=== PATIENT | male | born 1950 | race Caucasian/White ===

== ENCOUNTER 2021-09-25 18:32 | Inpatient (IN) | payer MEDICARE, SELFPAY ==
[2021-09-25] VITALS (8 sets, daily range): BP systolic 153–194; BP diastolic 75–86; PULSE 84–107; RESP 20–28; TEMP 37.3; O2SAT 91–100; BMI 24.1
--- NOTE | 2021-09-25 18:46 | DI.RAD.S_ITS ---
PROCEDURE: XR CHEST 1V INDICATIONS: Possible stroke TECHNIQUE: One view of the chest was acquired. COMPARISON: None. FINDINGS: Surgical changes and devices: Sternotomy wires and evidence of valve prosthesis. Lungs and pleura: No consolidation, pleural effusions or pneumothorax. Mediastinum: The cardiac silhouette is mildly enlarged. Calcified atheromatous change of the aorta. Bones and chest wall: No suspicious bony lesions. Overlying soft tissues appear unremarkable. IMPRESSION: No acute cardiopulmonary abnormality. Dictated by: Mack Gresham M.D. on 09/25/2021 at 19:57 Approved by: Mack Gresham M.D. on 09/25/2021 at 19:58
--- NOTE | 2021-09-25 18:46 | DI.CT.S_ITS ---
PROCEDURE: CT STROKE INDICATIONS: Positive BE-FAST, Stroke symptoms TECHNIQUE: Noncontrast 4.5 mm thick angled axial sections acquired from the foramen magnum to the vertex, with coronal reformats. For radiation dose reduction, the following was used: automated exposure control, adjustment of mA and/or kV according to patient size. COMPARISON: None. FINDINGS: Image quality: Excellent. CSF spaces: Basal cisterns are patent. No extra-axial fluid collections. The ventricles are symmetric in size and shape. Brain: No intracranial bleeds or masses. Bifrontal parietal encephalomalacia/gliosis as well as remote right cerebellar infarct. There is cerebral volume loss for age, with resultant ventricular and sulcal prominence. There are periventricular and deep white matter chronic small vessel ischemic changes. There is intracranial internal carotid artery atherosclerosis. Skull and face: Calvarium and visualized facial bones appear intact, without suspicious lesions. Sinuses: Visualized sinuses and mastoids are clear. IMPRESSION: No acute intracranial hemorrhage. This study fulfills neurological imaging criteria for inclusion or exclusion of acute stroke therapies based on available published neurological guidelines. Dictated by: Mack Gresham M.D. on 09/25/2021 at 19:26 Approved by: Mack Gresham M.D. on 09/25/2021 at 19:28
--- NOTE | 2021-09-25 18:46 | DI.CT.S_ITS ---
PROCEDURE: CT ANGIO HEAD AND NECK INDICATIONS: Possible stroke TECHNIQUE: After the administration of intravenous contrast, 1 mm thick sections acquired from the aortic arch through the [place] of [place]. Post-contrast 4.5 mm thick sections then re-acquired from the foramen magnum to the vertex. 3-dimensional goitryh-mopsmidbk-ryqlnapjep (MIP) and/or volume rendering reformats were acquired of the central intracranial vasculature and neck separately. For radiation dose reduction, the following was used: automated exposure control, adjustment of mA and/or kV according to patient size. COMPARISON: None. FINDINGS: Image quality: Excellent. BRAIN: CSF spaces: Ventricles are normal in size and shape. Basal cisterns are patent. No extra-axial fluid collections. Brain: No midline shift. No intracranial bleeds or masses. Bifrontal parietal hypoattenuation, compatible with gliosis. Remote infarct in the right cerebellum. Skull and face: Calvarium and facial bones appear intact, without suspicious lesions. Orbits appear normal. Sinuses: Sinuses and mastoids are clear. HEAD CT ANGIOGRAPHY: Anterior circulation: Intracranial internal carotid arteries are normal in size and flow. The flow within the paired anterior cerebral arteries is normal and symmetric. The flow within the middle cerebral arteries is normal and symmetric. The anterior communicating artery is seen. No aneurysms are seen. Posterior circulation: Visualized portions of the vertebral arteries demonstrate normal caliber, and join to form a normal appearing basilar artery. The right vertebral artery is dominant. Flow within the posterior cerebral arteries is normal and symmetric. No aneurysms are seen. NECK CT ANGIOGRAPHY: Carotid system: The great vessels demonstrate a conventional anatomy as they arise from the aortic arch. The origins of the common carotid arteries appear patent. The common carotid arteries demonstrate normal caliber and courses. The right bifurcation is widely patent. 55 percent stenosis of the left internal carotid artery, secondary to calcified atheromatous change. Posterior circulation: The origins of the vertebral arteries both appear widely patent. 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 The right vertebral artery is dominant. They join to form a normal appearing basilar artery. Soft tissues: Visualized neck soft tissues demonstrate no suspicious abnormalities. Bones: No suspicious bony lesions. Multifocal degenerative change. Visualized cervical spine appears normally aligned. IMPRESSION: 1. Approximately 55 percent stenosis by NASCET criteria of the left internal carotid artery secondary to calcified atheromatous change. 2. 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 Findings were discussed with the ordering provider at the time of dictation. Any quantitative measurements of stenosis were performed using NASCET criteria. Dictated by: Mcak Gresham M.D. on 09/25/2021 at 19:28 Approved by: Mack Gresham M.D. on 09/25/2021 at 19:39
--- NOTE | 2021-09-25 18:52 | PC.NURSE ---
Pt arrives ambulatory to ER with his . Pt states, first, that pt is very stubborn and I had to beg him to come in finally today-pt informs staff that 4 days ago, pt had sudden onset BUE numbness and loss of ability to speak and swallow or stick out his tongue. Pt has been able to communicate with her by writing and motioning/gesturing. Pt had episode in the car on the way to ER today of trouble breathing due to lack of ability to spit out saliva or swallow. Pt in no acute distress currently. Pt takes no medications, has no allergies. Pt states something similar happened to this 2 years ago and the pt never went to the doctor between today and then. Pt had speech symptoms back then and it gradually got better. Pt writes orientation answers to orientation questions and nods/shakes head appropriately to questions. Pt hypertensive, but otherwise VSS. Pt AxOx4. Pt has Hx of a metal heart valve and only takes ASA for this, per report.
[2021-09-25 19:11] LABS: Add Manual Diff / Slide Review NO; Basophils Absolute Auto 100 /uL (0-100); Basophils Percent Auto 0.8 % (0-2); Eosinophils Absolute Auto 300 /uL (0-450); Eosinophils Percent Auto 2.6 % (2-4); Hematocrit 45.5 % (41-53); Hemoglobin 14.9 g/dL (13.5-17.5); Lymphocytes Absolute Auto 1900 /uL (1100-4500); Mean Corpuscular HGB Conc 32.7 % (30-36); Mean Corpuscular Hemoglobin 30.6 PG (26-34); Mean Corpuscular Volume 93.5 fL (80-100); Monocytes Absolute Auto 1000 /uL (0-900); Neutrophils Absolute Auto 6400 /uL (1500-7000); Neutrophils Percent Auto 66.6 % (50-75); Platelet Count 234 X10^3/uL (150-400); Red Blood Cell Count 4.87 X10^6/uL (4.5-5.9); Red Cell Distribution Width 15.2 % (11.6-14.8); White Blood Cell Count 9.7 X10^3/uL (4.5-11.0)
--- NOTE | 2021-09-25 19:21 | ED.NEUROSD ---
HPI - Neuro Symptoms/Deficit General Chief Complaint: Neuro Symptoms/Deficit Stated Complaint: LEFT ARM NUMBNESS LOST ABILITY TO SPEAK Time Seen by Provider: 09/25/21 19:20 Source: family Mode of arrival: Ambulatory Limitations: no limitations History of Present Illness HPI Narrative: This is a 71-year-old male with a reported mechanical valve placed in 2010. Patient is unable to speak but can write and has a friend at bedside that he was texting for the past 3 days. Patient has been unable to speak, he has been unable to swallow his own secretions, patient indicated that he had some left arm weakness and numbness and difficulty with use of his arm but that has improved. He continues to be unable to speak or swallow well. He has been sucking on ice cubes to maintain hydration. He denies headache, he denies any difficulty with gait. He denies any chest pain or shortness of breath. Denies any nausea or vomiting. Denies any new GI or urinary symptoms. He indicates he takes an aspirin 81 mg daily as his only medication. He denies other surgeries besides his valve replacement. Patient vapes juice but not anything with nicotine. No alcohol or illicit. He lives on [facility]. On Anticoagulants: Yes (aspirin) Related Data Home Medications Medication Instructions Recorded Confirmed aspirin 81 mg chewable tablet 81 mg PO DAILY 09/25/21 09/25/21 Allergies Allergy/AdvReac Type Severity Reaction Status Date / Time No Known Drug Allergies Allergy Verified 09/25/21 20:03 Review of Systems Review of Systems ROS Unobtainable: All systems reviewed & are unremarkable except as noted in HPI and below Hematologic/Lymphatic On Anticoagulants: Yes (aspirin) Patient History Social History household members: none Smoking Status: Never smoker Smoking Status: Never smoker alcohol intake frequency: 0-2 drinks per day Substance Use Type: does not use Exam Narrative Exam Narrative: GEN: well nourished, well appearing male, alert and oriented, patient appears to be in mild distress. Patient communicates by writing. HEENT: Atraumatic, pupils are equal round reactive to light, extraocular movements are intact, nares are clear, no obvious droop, patient indicates that he is unable to stick his tongue out of his mouth, he has some mild difficulty with secretions but is able to handle the majority he had can grunt but cannot articulate in any way. HEART: Regular rate and rhythm without murmur, clicks, rubs. LUNGS:Lungs clear to auscultation, no wheezes, rales, crackles, chest moves symmetrically ABD:bowel sounds normal, soft, non-tender, no guarding, rebound, rigidity, no masses noted, no hepatosplenomegaly :No CVA tenderness MSCL: Non-tender, no muscle atrophy, muscles strength 5/5 upper and lower extremities, full range of motion, normal gait NEURO:CN 2-12 intact, sensation normal, reflexes 2/4 upper and lower extremities. finger nose finger test normal, heel rodriguez test normal SKIN: No rash, erythema or other skin changes. Initial Vital Signs Initial Vital Signs: Vital Signs Pulse Rate 92 H 09/25/21 18:46 Respiratory Rate 20 09/25/21 18:46 Blood Pressure 194/86 H 09/25/21 18:46 Pulse Oximetry 96 09/25/21 18:46 Scores NIH Stroke Scale Level of Conciousness: Alert, keenly responsive Ask month/age: Answers both questions correctly. Open/close eyes, close hand: Performs both tasks correctly Best gaze horizontal: Normal Visual saucedo: No visual loss Facial palsy: Partial paralysis, total or near total paralysis of lower face Left arm drift: No drift for full 10 sec Right arm drift: No drift for full 10 sec Left leg drift: No drift for full 5 sec Right leg drift: No drift for full 5 sec Limb ataxia: Absent Sensory on face/arms/legs: Normal, no sensory loss Best language: Mute, global aphasia Dysarthria: Severe, unintelligible Extinction or inattention: No abnormality Total NIH Stroke scale score: 7 Course Orders Ordered: ED Orders 09/26/21 04:50 Urine Drug Screen, Rapid Stat Acetaminophen (Acetaminophen 325 Mg Tablet) 650 mg PO Q6HR PRN PRN Reason: pain, fever Aspirin (Aspirin 300 Mg Supp) 300 mg MT DAILY [facility] Atorvastatin Calcium (Atorvastatin 20 Mg Tablet) 80 mg PO BEDTIME BRUCE Last Admin: 09/25/21 21:57 Dose: Not Given Documented by: DAVID Enoxaparin Sodium (Enoxaparin 40 Mg/0.4 Ml Syringe) 40 mg SUBCUT DAILY [facility] Sodium Chloride (Normal Saline 0.9%) 1,000 mls @ 150 mls/hr IV CONT BRUCE Last Admin: 09/26/21 04:52 Dose: 150 mls/hr Documented by: Infusion: 09/26/21 02:37 Dose: 150 mls/hr Documented by: Admin: 09/25/21 19:56 Dose: 150 mls/hr Documented by: [email or web address] Naloxone HCl (Naloxone 0.4 Mg/Ml Vial) 0.2 mg IV Q2MIN PRN PRN Reason: Opiate Reversal Nystatin (Nystatin Powder 15gm) 1 applic TOP BID PRN PRN Reason: Rash Last Admin: 09/26/21 04:51 Dose: 1 applic Documented by: DAVID Ondansetron HCl (Ondansetron 4 Mg/2 Ml Inj) 4 mg IV Q8HR PRN PRN Reason: Nausea And Vomiting Discontinued Medications Aspirin (Aspirin 81 Mg Chew Tab) 324 mg PO NOW ONE Stop: 09/25/21 19:45 Last Admin: 09/25/21 20:03 Dose: Not Given Documented by: [email or web address] Aspirin (Aspirin 300 Mg Supp) 300 mg MT NOW ONE Stop: 09/25/21 20:06 Last Admin: 09/25/21 20:12 Dose: 300 mg Documented by: [email or web address] Consultations Consultation #1: Dr. Virgen, hospitalist accepts for admission. Reviewed patient's findings including angiography, given aspirin 300 mg per rectum as patient unable to chew aspirin. Time: 19:57 Vital Signs Vital signs: Vital Signs - 8 hr 09/25/21 18:46 Pulse Rate 92 H Respiratory Rate 20 Blood Pressure 194/86 H Pulse Oximetry 96 MDM - Neuro Symptoms/Deficit Lab Data Result diagrams: 09/26/21 04:15 09/26/21 04:15 Labs: Lab Results 09/25/21 09/25/21 09/25/21 Range/Units 17:00 17:00 17:00 WBC 9.7 (4.5-11.0) X10^3/uL RBC 4.87 (4.5-5.9) X10^6/uL Hgb 14.9 (13.5-17.5) g/dL Hct 45.5 (41-53) % MCV 93.5 (80-100) fL MCH 30.6 (26-34) PG MCHC 32.7 (30-36) % RDW 15.2 H (11.6-14.8) % Plt Count 234 (150-400) X10^3/uL Neut % (Auto) 66.6 (50-75) % Lymph % (Auto) 20.0 L (25-40) % [place] % (Auto) 10.0 (3-14) % Eos % (Auto) 2.6 (2-4) % Baso % (Auto) 0.8 (0-2) % Neut # (Auto) 6400 (9783-2628) /uL Lymph # (Auto) 1900 (7576-5701) /uL [place] # (Auto) 1000 H (0-900) /uL Eos # (Auto) 300 (0-450) /uL Baso # (Auto) 100 (0-100) /uL PT 12.6 (10.1-12.7) SECONDS INR 1.1 (0.9-1.3) APTT 31 (26.4-36.2) SECONDS Sodium 141 (137-145) mmol/L Potassium 4.2 (3.4-5.1) mmol/L Chloride 105 (98-107) mmol/L Carbon Dioxide 27 (22-32) mmol/L BUN 21 H (9-20) mg/dL Creatinine 1.00 (0.66-1.25) mg/dL Estimated GFR > 60 (>60) mL/min BUN/Creatinine Ratio 21.0 (6-22) Glucose 99 (80-110) mg/dL Calcium 9.4 (8.4-10.2) mg/dL Magnesium 2.1 (1.6-2.3) mg/dL Total Bilirubin 1.1 (0.2-1.3) mg/dL AST 48 (17-59) IU/L ALT 38 (<50) IU/L Alkaline Phosphatase 76 (38-126) U/L Total Creatine Kinase 613 H (55-170) U/L CK-MB (CK-2) 6.16 H (<2.37) ng/mL CK-MB (CK-2) Rel Index 1.0 L (1.5-5.0) % Troponin I 0.012 (0.01-0.034) ng/mL Total Protein 8.9 H (6.3-8.2) g/dL Albumin 5.1 H (3.5-5.0) g/dL Globulin 3.8 (1.7-4.1) g/dL Albumin/Globulin Ratio 1.3 (1.0-2.8) SARS-CoV-2 (PCR) (Negative) 09/25/21 Range/Units 19:45 WBC (4.5-11.0) X10^3/uL RBC (4.5-5.9) X10^6/uL Hgb (13.5-17.5) g/dL Hct (41-53) % MCV (80-100) fL MCH (26-34) PG MCHC (30-36) % RDW (11.6-14.8) % Plt Count (150-400) X10^3/uL Neut % (Auto) (50-75) % Lymph % (Auto) (25-40) % [place] % (Auto) (3-14) % Eos % (Auto) (2-4) % Baso % (Auto) (0-2) % Neut # (Auto) (1134-4947) /uL Lymph # (Auto) (7735-3737) /uL [place] # (Auto) (0-900) /uL Eos # (Auto) (0-450) /uL Baso # (Auto) (0-100) /uL PT (10.1-12.7) SECONDS INR (0.9-1.3) APTT (26.4-36.2) SECONDS Sodium (137-145) mmol/L Potassium (3.4-5.1) mmol/L Chloride (98-107) mmol/L Carbon Dioxide (22-32) mmol/L BUN (9-20) mg/dL Creatinine (0.66-1.25) mg/dL Estimated GFR (>60) mL/min BUN/Creatinine Ratio (6-22) Glucose (80-110) mg/dL Calcium (8.4-10.2) mg/dL Magnesium (1.6-2.3) mg/dL Total Bilirubin (0.2-1.3) mg/dL AST (17-59) IU/L ALT (<50) IU/L Alkaline Phosphatase (38-126) U/L Total Creatine Kinase (55-170) U/L CK-MB (CK-2) (<2.37) ng/mL CK-MB (CK-2) Rel Index (1.5-5.0) % Troponin I (0.01-0.034) ng/mL Total Protein (6.3-8.2) g/dL Albumin (3.5-5.0) g/dL Globulin (1.7-4.1) g/dL Albumin/Globulin Ratio (1.0-2.8) SARS-CoV-2 (PCR) Negative (Negative) Imaging Data CT scan - head: Radiologist's Impression: Gabriele Rogers??71??M??1950 ? Allergy/Adv: Not Recorded Close Head/Neck CTA 09/25/[address] (Signed) Harish Greshamddie - 09/25/21 Launch[facility] [address] CT Scan Report Signed Patient: Gabriele Rogers MR#: [id number] : 1950 Acct:[id number] Age/Sex: 71 / M Date of Service: 09/25/21 Loc: ED Accession Number: [id number] ?? Procedure: CT Stroke Ordering Provider: Ammy Sen D.O. PROCEDURE:? CT STROKE ? INDICATIONS:? Positive BE-FAST, Stroke symptoms ? TECHNIQUE:? Noncontrast 4.5 mm thick angled axial sections acquired from the foramen magnum to the vertex, with coronal reformats.? For radiation dose reduction, the following was used:? automated exposure control, adjustment of mA and/or kV according to patient size.? ? COMPARISON:? None. ? FINDINGS:? Image quality:? Excellent.? ? CSF spaces:? Basal cisterns are patent.? No extra-axial fluid collections.? The ventricles are symmetric in size and shape.? ? Brain:? No intracranial bleeds or masses.? Bifrontal parietal encephalomalacia/gliosis as well as remote right cerebellar infarct.? There is cerebral volume loss for age, with resultant ventricular and sulcal prominence.? There are periventricular and deep white matter chronic small vessel ischemic changes.? There is intracranial internal carotid artery atherosclerosis.? ? Skull and face:? Calvarium and visualized facial bones appear intact, without suspicious lesions.? ? Sinuses:? Visualized sinuses and mastoids are clear.? ? IMPRESSION:? No acute intracranial hemorrhage. ? This study fulfills neurological imaging criteria for inclusion or exclusion of acute stroke therapies based on available published neurological guidelines.? ? ? Dictated by: Mack Gresham M.D. on 09/25/2021 at 19:26 ? ? Approved by: Mack Gresham M.D. on 09/25/2021 at 19:28?? CTA - brain/neck: Radiologist's Impression: [address] [address] [address] Scan Report Signed Patient: Gabriele Rogers MR#: [id number] : 1950 Acct:[id number] Age/Sex: 71 / M Date of Service: 09/25/21 Loc: ED Accession Number: [id number] ?? Procedure: CT angio head and neck Ordering Provider: Ammy Sen D.O. PROCEDURE:? CT ANGIO HEAD AND NECK ? INDICATIONS:? Possible stroke ? TECHNIQUE:? ?After the administration of intravenous contrast, 1 mm thick sections acquired from the aortic arch through the [place] of [place].? Post-contrast 4.5 mm thick sections then re-acquired from the foramen magnum to the vertex.? 3-dimensional pqpsgea-dkwmzwlkh-lrllbremaf (MIP) and/or volume rendering reformats were acquired of the central intracranial vasculature and neck separately. For radiation dose reduction, the following was used:? automated exposure control, adjustment of mA and/or kV according to patient size.? ? COMPARISON:? None. ? FINDINGS:? Image quality:? Excellent.? ? BRAIN:? CSF spaces:? Ventricles are normal in size and shape.? Basal cisterns are patent.? No extra-axial fluid collections.? ? Brain:? No midline shift.? No intracranial bleeds or masses.? Bifrontal parietal hypoattenuation, compatible with gliosis.? Remote infarct in the right cerebellum.? ? Skull and face:? Calvarium and facial bones appear intact, without suspicious lesions.? Orbits appear normal.? ? Sinuses:? Sinuses and mastoids are clear.? ? HEAD CT ANGIOGRAPHY:? Anterior circulation:? Intracranial internal carotid arteries are normal in size and flow.? The flow within the paired anterior cerebral arteries is normal and symmetric.? The flow within the middle cerebral arteries is normal and symmetric.? The anterior communicating artery is seen.? No aneurysms are seen.? ? Posterior circulation:? Visualized portions of the vertebral arteries demonstrate normal caliber, and join to form a normal appearing basilar artery.? The right vertebral artery is dominant.? Flow within the posterior cerebral arteries is normal and symmetric.? No aneurysms are seen.? ? NECK CT ANGIOGRAPHY:? Carotid system:? The great vessels demonstrate a conventional anatomy as they arise from the aortic arch.? The origins of the common carotid arteries appear patent.? The common carotid arteries demonstrate normal caliber and courses.? The right bifurcation is widely patent.? 55 percent stenosis of the left internal carotid artery, secondary to calcified atheromatous change.? ? Posterior circulation:? The origins of the vertebral arteries both appear widely patent.? 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 The right vertebral artery is dominant.? They join to form a normal appearing basilar artery.? ? Soft tissues:? Visualized neck soft tissues demonstrate no suspicious abnormalities.? ? Bones:? No suspicious bony lesions.? Multifocal degenerative change.? Visualized cervical spine appears normally aligned.? ? ? IMPRESSION:? 1. Approximately 55 percent stenosis by NASCET criteria of the left internal carotid artery secondary to calcified atheromatous change. 2. 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 ? Findings were discussed with the ordering provider at the time of dictation. ? Any quantitative measurements of stenosis were performed using NASCET criteria.? ? ? Dictated by: Mack Gresham M.D. on 09/25/2021 at 19:28 ? ? Approved by: Mack Gresham M.D. on 09/25/2021 at 19:39?? ECG Data Attestation: I personally reviewed and interpreted this ECG as follows: Prior ECG tracings: not available for review Interpretation: AFib with PVCs, rate 87 QRS of 96 and QTC of [address] changes. No priors for comparison. MDM Narrative Medical decision making narrative: This is a 71-year-old male with 3 days of dysphagia, dysarthria which have been persistent and reported left upper extremity weakness which has resolved. Patient is far outside the window for tPA, or code IR. Head CT and CT angio show 55% stenosis of left ICA. Patient is in AFib although rate controlled he is on aspirin daily and has reported mechanical valve as well. Patient received aspirin 300 mg per rectum secondary to significant dysphagia and dysarthria. Case discussed with hospitalist who kindly accepts. Stroke Core Measures Exclusion Criteria TPA in CVA: Symptom Onset >3 or 4.5 Hours (3 days.) Discharge Plan Departure Patient Disposition: Admitted As Inpatient Clinical Impression: CVA (cerebral vascular accident) Admit Date/Time: 09/25/21 20:00 Admit Provider: Rao Virgen
[2021-09-25 19:30] LABS: INR 1.1 (0.9-1.3); Prothrombin Time 12.6 SECONDS (10.1-12.7)
[2021-09-25 19:33] LABS: PTT Partial Thromboplastin Tim 31 SECONDS (26.4-36.2)
[2021-09-25 19:37] LABS: Alanine Aminotransferase 38 IU/L (<50); Albumin 5.1 g/dL (3.5-5.0); Albumin Globulin Ratio 1.3 (1.0-2.8); Alkaline Phosphatase 76 U/L (38-126); Aspartate Aminotransferase 48 IU/L (17-59); Bilirubin Total 1.1 mg/dL (0.2-1.3); Blood Urea Nitrogen 21 mg/dL (9-20); Calcium 9.4 mg/dL (8.4-10.2); Carbon Dioxide 27 mmol/L (22-32); Chloride 105 mmol/L (98-107); Creatine Kinase 613 U/L (55-170); Estimated Glomerular Filt Rate > 60 mL/min (>60); Globulin 3.8 g/dL (1.7-4.1); Glucose 99 mg/dL (80-110); HEMOLYSIS 20 (0-50); Magnesium 2.1 mg/dL (1.6-2.3); Potassium 4.2 mmol/L (3.4-5.1); Sodium 141 mmol/L (137-145); Total Protein 8.9 g/dL (6.3-8.2)
[2021-09-25 19:48] LABS: Troponin I 0.012 ng/mL (0.01-0.034)
[2021-09-25 19:53] LABS: Creatine Kinase MB 6.16 ng/mL (<2.37)
[2021-09-25] MEDS: SODIUM CHLORIDE 0.9% 1,000 ML 150 ML IV (19:56)
--- NOTE | 2021-09-25 19:56 | PC.NURSE ---
Provider OK with pt receiving chewable aspirin at this time. Pt has been able to chew home aspirin doses without difficulty. Will monitor pt.
[2021-09-25] MEDS: ASPIRIN 300 MG SUPP PR (20:12)
[2021-09-25 20:19] LABS: COVID19 -Nasal RAPID Negative (Negative)
--- NOTE | 2021-09-25 22:19 | P.HP_ITS ---
History of Present Illness History of Present Illness Date Patient Seen: 09/25/21 Time Patient Seen: 23:00 Chief complaint: LEFT ARM NUMBNESS LOST ABILITY TO SPEAK Narrative: Mr. Rogers is a 71M with H mechanical cardiac valve, CVA who presents with inability to swallow and speak. He takes aspirin but no anticoagulation He notes that he has felt abnormal for 3 days. He initially had some left handed nubmness and weakness that has now resolved. He developed inability to speak and difficulty to swallow even his own secretions. Because of this he presented to the hospital . he has no headache, vision changes, extremity weakness, chest pain, shortness of breath, nausea, vomiting. In the ED workup was done, vitals notable for elevated blood pressure 194/86. Initial NIH was 7. Labs notable for WBC 9.7, hgb 14.9, plts 234, creatinine 1.00. INR 1.1. CK 613, trop 0.012. CT head showed no acute process. CTA shows approximately 55% left internal carotid stenosis. EKG showed atrial fibrillation. He was ordered for rectal aspirin and admitted for further julia luation. Social history: occassional alcohol use Family history: denies history of CVA Patient History Family & Social History Social History: household members none Prior Living Arrangements House Safety & Behavioral: Feels Safe in Current Yes Environment Been Physically Hurt or No Threatened By a Person Tobacco & Substance use: Smoking Status Never smoker alcohol intake frequency 0-2 drinks per day Substance Use Type does not use Meds Home Medications and Allergies Home Medications Medication Instructions Recorded Confirmed Type aspirin 81 mg chewable tablet 81 mg PO DAILY 09/25/21 09/25/21 History Allergies Allergy/AdvReac Type Severity Reaction Status Date / Time No Known Drug Allergies Allergy Verified 09/25/21 20:03 Review of Systems Review of Systems Narrative: 14 systems reviewed and negative aside from what is noted in HPI Exam Vital Signs (past 8 hours): - 09/25/21 18:46 09/25/21 18:47 09/25/21 18:50 Temperature Pulse Rate 92 H 86 97 H Respiratory Rate 20 26 H Blood Pressure 194/86 H 194/86 H Pulse Oximetry 96 91 100 09/25/21 19:00 09/25/21 19:30 09/25/21 20:00 Temperature Pulse Rate 92 H 107 H 103 H Respiratory Rate 28 H 28 H 24 Blood Pressure Pulse Oximetry 99 97 97 09/25/21 21:02 09/25/21 21:30 09/26/21 00:45 Temperature 99.2 F 97.8 F Pulse Rate 95 H 84 97 H Respiratory Rate 22 20 16 Blood Pressure 162/78 H 153/75 H 145/89 H Pulse Oximetry 96 92 97 Oxygen Delivery Method Room Air Narrative Exam Narrative: GEN: no acute distress HEENT:moist mucous membranes, PERRL NECK: trachea midline, no JVD CV: Regular rate and rhythm without murmur PULM:clear bilaterally, no wheezes, rales, crackles ABD:bowel sounds normal, soft, non-tender, nondistended, no organomegaly EXT:: Non-tender, no edema NEURO:difficulty sticking out tongue, unable to speak, difficulty swallowing, otherwise CN 2-12 intact, sensation normal, upper and lower extremities with 5/5 strength SKIN:? No rash, erythema Objective Labs Result Diagrams: 09/25/21 17:00 09/25/21 17:00 Labs: Laboratory Results - last 24 hr 09/25/21 09/25/21 09/25/21 17:00 17:00 17:00 WBC 9.7 RBC 4.87 Hgb 14.9 Hct 45.5 MCV 93.5 MCH 30.6 MCHC 32.7 RDW 15.2 H Plt Count 234 Neut % (Auto) 66.6 Lymph % (Auto) 20.0 L Ector % (Auto) 10.0 Eos % (Auto) 2.6 Baso % (Auto) 0.8 Neut # (Auto) 6400 Lymph # (Auto) 1900 Ector # (Auto) 1000 H Eos # (Auto) 300 Baso # (Auto) 100 PT 12.6 INR 1.1 APTT 31 Sodium 141 Potassium 4.2 Chloride 105 Carbon Dioxide 27 BUN 21 H Creatinine 1.00 Estimated GFR > 60 BUN/Creatinine Ratio 21.0 Glucose 99 Calcium 9.4 Magnesium 2.1 Total Bilirubin 1.1 AST 48 ALT 38 Alkaline Phosphatase 76 Total Creatine Kinase 613 H CK-MB (CK-2) 6.16 H CK-MB (CK-2) Rel Index 1.0 L Troponin I 0.012 Total Protein 8.9 H Albumin 5.1 H Globulin 3.8 Albumin/Globulin Ratio 1.3 SARS-CoV-2 (PCR) 09/25/21 19:45 WBC RBC Hgb Hct MCV MCH MCHC RDW Plt Count Neut % (Auto) Lymph % (Auto) Ector % (Auto) Eos % (Auto) Baso % (Auto) Neut # (Auto) Lymph # (Auto) Ector # (Auto) Eos # (Auto) Baso # (Auto) PT INR APTT Sodium Potassium Chloride Carbon Dioxide BUN Creatinine Estimated GFR BUN/Creatinine Ratio Glucose Calcium Magnesium Total Bilirubin AST ALT Alkaline Phosphatase Total Creatine Kinase CK-MB (CK-2) CK-MB (CK-2) Rel Index Troponin I Total Protein Albumin Globulin Albumin/Globulin Ratio SARS-CoV-2 (PCR) Negative Assessment & Plan Assessment & Plan narrative: Mr. Rogers is a 71M with PMH CVA, mechanical heart valve admitted for presumed CVA. 1. CVA, subacute to acute -patient presents days after start of symtpoms -outside of window for TPA -ct head with no acute process -cta head/neck shows L ICA 55% stenosis -ordered for VT aspirin -add plavix and statin once patient can swallow -failed swallow screen -consult speech therapy -may need to consider other forms of nutrition given severity of swallowing -ordered for MRI and ECHO -check a1c, lipids -keep on tele -NIH ordered q4 2. Elevated blood pressure -allow permissive hypertension and treat only if sbp >220 3. Atrial fibrillation -rate controlled currently -ECHO ordered -consider anticoagulation to start near discharge pending MRI results first 4. Mechanical heart valve -continue aspirin -patient has heart valve cards to eval if can get MRI CODE: Full Proxy: Friend, Darryl Brush I have utilized all available resources to reconcile the patient's home medications Time Spent With Patient Critical Care time: I spent a total of [] minutes of critical care time on this patient's care today; this time is exclusive of procedural time. Quality MIPS - Admit I confirm the patient?s Advance Care Plan is present, Code status is documented, Surrogate decision maker is in patient?s record [If Yes, STOP here]: Yes
[2021-09-26] VITALS (11 sets, daily range): BP systolic 145–156; BP diastolic 69–89; PULSE 67–98; RESP 16–19; TEMP 36.4–37.3; O2SAT 95–99
[2021-09-26] MEDS: NYSTATIN POWDER 15GM 1 APPLIC TOP (04:51)
[2021-09-26] MEDS: SODIUM CHLORIDE 0.9% 1,000 ML 150 ML IV ×3 (04:52→18:52)
[2021-09-26 04:54] LABS: Add Manual Diff / Slide Review NO; Basophils Absolute Auto 100 /uL (0-100); Basophils Percent Auto 0.8 % (0-2); Eosinophils Absolute Auto 500 /uL (0-450); Eosinophils Percent Auto 5.1 % (2-4); Hematocrit 40.7 % (41-53); Hemoglobin 13.7 g/dL (13.5-17.5); Lymphocytes Absolute Auto 1900 /uL (1100-4500); Lymphocytes Percent Auto 21.4 % (25-40); Mean Corpuscular HGB Conc 33.6 % (30-36); Mean Corpuscular Hemoglobin 30.9 PG (26-34); Mean Corpuscular Volume 92.1 fL (80-100); Monocytes Absolute Auto 1100 /uL (0-900); Monocytes Percent Auto 12.3 % (3-14); Neutrophils Absolute Auto 5400 /uL (1500-7000); Neutrophils Percent Auto 60.4 % (50-75); Platelet Count 186 X10^3/uL (150-400); Red Blood Cell Count 4.42 X10^6/uL (4.5-5.9); Red Cell Distribution Width 14.8 % (11.6-14.8); White Blood Cell Count 8.9 X10^3/uL (4.5-11.0)
[2021-09-26 05:11] LABS: BUN Creatinine Ratio 21.3 (6-22); Blood Urea Nitrogen 19 mg/dL (9-20); Calcium 8.4 mg/dL (8.4-10.2); Carbon Dioxide 26 mmol/L (22-32); Chloride 109 mmol/L (98-107); Estimated Glomerular Filt Rate > 60 mL/min (>60); Glucose 89 mg/dL (80-110); HEMOLYSIS < 15 (0-50); Potassium 3.7 mmol/L (3.4-5.1); Sodium 142 mmol/L (137-145)
[2021-09-26 05:33] LABS: Ur Creatinine 50 (Normal); Ur Specific Gravity 1.025 (Normal); Urine pH 5 (Normal)
[2021-09-26 05:34] LABS: Appearance Urine UA CLEAR; Bilirubin Urine UA 1+ (NEGATIVE); Color Urine UA YELLOW; Glucose Urine UA NEGATIVE (Negative); Ketones Urine UA 1+ (NEGATIVE); Leukocyte Esterase Urine UA NEGATIVE (NEGATIVE); Nitrite Urine UA NEGATIVE (Negative); Occult Blood Urine UA 1+ (Negative); Protein Urine UA TRACE (Negative); UR Morphine/Opiate cutoff 300 Negative (Negative); Urine Amphetamines Negative (Negative); Urine Barbiturates Negative (Negative); Urine Benzodiazepines Negative (Negative); Urine Cocaine Negative (Negative); Urine MDMA Negative (Negative); Urine Methadone Negative (Negative); Urine Methamphetamines Negative (Negative); Urine Oxycodone Negative (Negative); Urine Phencyclidine Negative (Negative); Urine Tetrahydrocannabinol Negative (Negative); Urine Tricyclic Antidepressant Negative (Negative)
[2021-09-26 05:42] LABS: Ictotest Urine Negative (Negative)
[2021-09-26 06:17] LABS: Bacteria Urine None Seen; Culture Indicated Urine Cult Not Indicated; RBC Urine None Seen (0-5/HPF); WBC Urine 0-1/HPF (0-5/HPF)
[2021-09-26 06:50] LABS: Hemoglobin A1C% w Est Avg Glu 5.7 % (4.0-6.0)
--- NOTE | 2021-09-26 07:39 | PC.ADMIT ---
[id number] Admission Note: Pt arrived in no apparent cardiovascular or respiratory distress, alert and oriented, mute and unable to adequately swallow secretions. Pt cannot extend tongue or open mouth wide. Suction set up at bedside for pt to remove secretions on own. Airway not compromised, pt reports no difficulty breathing, no swelling or discoloration noted in oropharynx. NIHSS 7 for speech difficulties and partial paralysis of face. The patient,Gabriele Rogers,71 y/o, was given written information regarding hospital policies, unit procedures and contact persons. Patient's smoking status: Never smoker. Vital Signs - 8 hr 09/26/21 00:45 09/26/21 04:21 Temperature 97.8 F 97.8 F Pulse Rate 97 H 74 Respiratory Rate 16 16 Blood Pressure 145/89 H 148/84 H Pulse Oximetry 97 96
[2021-09-26] MEDS: ASPIRIN 300 MG SUPP PR (08:33)
[2021-09-26] MEDS: ENOXAPARIN 40 MG/0.4 ML SYRINGE SUBCUT (08:33)
--- NOTE | 2021-09-26 10:15 | OT.IP.EVAL ---
Occupational Therapy Inpatient Evaluation/Re-Eval M1 PT/OT-IP Prior Functional Status Start: 09/26/21 13:46 Freq: NEEDED Status: Active Protocol: Document 09/26/21 14:23 [facility] (Rec: 09/26/21 14:45 [facility] [id number]) Medical Review Prior Functional Status Medical History Reviewed Yes Communication pt unable to talk but able to comprehend and answer questions by nodding/shaking his head, use of hand gestures , also uses writing tablet to assist with communication Mobility and Gait pt was independent with all mobilities and ambulation without AD but occasionally uses a SPC for outdoor mobility; [place] and uses SPC for safety Activities of Daily Living and IADL's Completely independent for all his ADL,IADL, but does not drive. 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 Social History Household Members none Living Arrangements House Number of Floors (Floors) One Floor Number of Stairs To Enter/Railing? ramp to enter Home Environment Standard Height Toilet,Walk in Shower,Ramp Home Equipment Straight Cane M2 OT-IP Current Condition Start: 09/26/21 14:23 Freq: Status: Active Protocol: Document 09/26/21 14:23 [facility] (Rec: 09/26/21 14:45 [facility] [id number]) Occupational Therapy Current Condition Current Condition Evaluation Date 09/26/21 Treatment Diagnosis CVA, decreased coordination Diagnosis Onset Date 09/25/21 M3 OT- IP Subjective and Pain Start: 09/26/21 14:23 Freq: Status: Active Protocol: Document 09/26/21 14:23 [facility] (Rec: 09/26/21 14:45 [facility] [id number]) OT- Subjective Occupational Therapy Visit Type Type Initial Evaluation Visit Start Time 09:35 Visit Stop Time 10:15 Total Visit Minutes 40 Occupational Therapy Visit Comments Patient Comments Pt agreed to do OT eval. Pt given writing tablet to use to communicated while in the hospital. Patient/Caregiver Goals To get better. OT Pain Assessment Pain When Pain Assessed At Rest Pain Present Pain Present Denied Pain M4 OT- IP ADL's Start: 09/26/21 14:23 Freq: Status: Active Protocol: Document 09/26/21 14:23 [facility] (Rec: 09/26/21 14:45 [facility] [id number]) OT [id number] Comments OT Self-Feeding Comments Pt not able to eat at this time, NPO OT ADL-Grooming General Evaluation Grooming Ability Standby Assistance Areas Needing Assistance Retrieving/Set-up of Grooming Items Comments OT Grooming Comments Pt able to brush his hair and put in hair tie but mainly using right hand as left hand having trouble with coordination. OT ADL-Oral Care Comments Oral Care Comments Pt only uses mouth swabs as NPO. OT ADL-Dressing General Eval Lower Body Dressing Ability Standby Assistance Comments OT Dressing Comments Pt able to josé/doff his socks while seated in the recliner. OT ADL-Toileting Comments OT Toileting Comments Pt not having to use the toilet at this time. OT ADL-Bathing Comments OT Bathing Comments Not performed. M5 OT- IP IADL's Start: 09/26/21 14:23 Freq: Status: Active Protocol: Document 09/26/21 14:23 [facility] (Rec: 09/26/21 14:45 [facility] [id number]) OT-Instrumental Activities of Daily Living Home Safety Awareness Home Safety Comments to further assess M6 OT- IP Functional Cognition Start: 09/26/21 14:23 Freq: Status: Active Protocol: Document 09/26/21 14:23 [facility] (Rec: 09/26/21 14:45 [facility] [id number]) Cognitive Factors Limiting Selfcare Function Cognitive Ability Level of Alertness Alert Patient Orientation Name,Place,Situation Attention Span Ability Capable of Focused Attention, Capable of Sustained Attention Ability to Follow Commands Able to Follow Multi-Step Commands Cognitive Comments Cognitive Assessment Comments Pt now able to speak or even move his lips when asked what his name is. Pt given writing tablet to use to communicate. Pt having difficulty with spelling words but able to get his point across. Pt able to follow multiple commands for [place] [employer]. Pt scored 119 seconds which implies moderate deficits for visual attention, speed of processing , task switching, mental flexibility, and executive functioning. Pt needing Victorina to help figure out a 4 variable chart when looking up his percentile for his age group for 9 hole peg test. Pt realizes that he is thinking slower and now having a hard time to spell. OT- Vision and Hearing OT- Vision Assessment Visual Acuity Glasses All The Time Visual Attentiveness WFL Occular Pursuits WFL Visual Convergence WFL Visual Agrawal WFL Diplopia Absent M7 OT- IP Mobility and Balance Start: 09/26/21 14:23 Freq: Status: Active Protocol: Document 09/26/21 14:23 [facility] (Rec: 09/26/21 14:45 [facility] [id number]) OT- Bed Mobility Assessment Supine to Sit Supine to Sit Assist Independent Sit to Supine Sit to Supine Assist Independent Scooting Scooting to Edge of Bed Independent OT-Transfer Assessment Sit to and From Stand Sit to and from Stand Standby Assistance Transfers Transfer Ability Standby Assistance Technique Transfer Destination Bed,Chair Devices Transfer Assistive Devices None,Gait Belt Comments Mobility Comments Pt independently able to get into and out of the bed on his own. Pt able to walk in the room and showing the therapist that he could hop on one foot and turn in a [place] with fair+ safety at this time. OT- Balance Assessment Sitting Balance and Reactions Static Sitting Balance Ability Normal Dynamic Sitting Balance Ability Good Standing Balance and Reactions Static Standing Balance Ability Good Dynamic Standing Balance Ability Fair M8 OT- IP Objective Assessments Start: 09/26/21 14:23 Freq: Status: Active Protocol: Document 09/26/21 14:23 [facility] (Rec: 09/26/21 14:45 [facility] [id number]) OT Gross Range of Motion Upper Extremity Range of Motion Assessment Within Functional Limits OT Strength Upper Extremity Strength Assessment Within Functional Limits OT- Coordination Assessment Upper Extremity Finger to Nose Test Within Functional Limits Finger Tapping Test Within Functional Limits Comments Coordination Comments 9 hole peg test 50% for age at 25sec for right hand and left hand 58 seconds OT-Muscle Tone Assessment Muscle Tone WNL Yes OT Sensation Assessment Comments Summary Comments Pt states left hand feels different from the right side. Pt decreased for kinesthesia and proprioception for left hand and wrist. M9 OT- IP Assessment and Plan Start: 09/26/21 14:23 Freq: Status: Active Protocol: Document 09/26/21 14:23 [facility] (Rec: 09/26/21 14:45 [facility] [id number]) OT Summary Assessment and Plan Potential Rehabilitation Potential Good Analytic Complexity at Evaluation Moderate Summary OT Impairments Balance,Coordination, Functional Cognition, Functional Mobility,Self- Feeding,Grooming,Dressing, Toileting,Bathing,Toilet Transfers,Shower Transfers Progress Towards Goals Progressing Toward Goals Assessment Summary Pt MOD complexity and main barriers are speech and swallowing needs, decreased coordination of left hand, decreased executive functioning, and would greatly benefit from acute rehab. If pt having to go home would need 24/7 assist and outpt therapy at this time, however pt lives alone. Goals Self-Feeding Goal Independent Grooming Goal Independent Dressing Goal Independent Toileting Goal Independent Bathing Goal Independent Toilet Transfer Goal Independent Shower Transfer Goal Independent OT-Other Goals All goals with use incorporation of left hand for efficient and smooth movements. Days to Meet Goals 30 Frequency of Treatment Frequency Of Treatment Once a Day Treatment Plan OT Treatment Plan ADL Training,Functional Cognition Training,Functional Mobility,Patient/Family Education,Discharge Planning Other Treatment Recommendations and Next shower Treatment Focus Discharge Recommendations OT Discharge Recommendations Home with 09/12 Assist Available,Acute Rehab, Outpatient PT Transportation Needs at Discharge Private Vehicle
--- NOTE | 2021-09-26 10:55 | SLP.IPNOTE ---
Pt was attempting to move the chair closer to the window when SKINNING MACHINE FEEDER arrived. He communicated using gestures and writing down what he wanted to say. Completed portion of oral motor exercises with pt. He demonstrated a reflexive smile and had difficulty with pucker and protrusion of tongue. Pt reported continued difficulty with saliva management. No PO trials at this time due to lack of motor control of oral structures and difficulty with secretions, both of which place pt at a high risk for aspiration. Recommend pt remain NPO at this time. Will continue to monitor and assess as appropriate.
--- NOTE | 2021-09-26 12:25 | PT.IIE ---
Physical Therapy Inpatient Evaluation/Re-Eval M1 PT/OT-IP Prior Functional Status Start: 09/26/21 13:46 Freq: NEEDED Status: Active Protocol: Document 09/26/21 12:25 [facility] (Rec: 09/26/21 13:56 AB [id number]) Medical Review Prior Functional Status Medical History Reviewed Yes Communication pt unable to talk but able to comprehend and answer questions by nodding/shaking his head; also uses writing tablet to assist with communication Mobility and Gait pt was independent with all mobilities and ambulation without AD but occasionally uses a SPC for outdoor mobility; [place] and uses SPC for safety Social History Household Members none Living Arrangements House Number of Floors (Floors) One Floor Number of Stairs To Enter/Railing? ramp to enter Home Environment Standard Height Toilet,Ramp M2 PT-IP Current Condition Start: 09/26/21 13:46 Freq: NEEDED Status: Active Protocol: Document 09/26/21 12:25 [facility] (Rec: 09/26/21 13:56 AB [id number]) Physical Therapy Current Condition Current Condition Evaluation Date 09/26/21 Treatment Diagnosis CVA; difficulty in walking Onset Date 09/25/21 M3 PT-IP Subjective Start: 09/26/21 13:46 Freq: NEEDED Status: Active Protocol: Document 09/26/21 12:25 [facility] (Rec: 09/26/21 13:56 AB [id number]) Subjective Physical Therapy Visit Type Type Initial Evaluation Visit Start Time 12:25 Visit Stop Time 12:50 Total Visit Minutes 25 Number of CHARGE NURSE Visits 0 Physical Therapy Visit Comments Patient Comments agreeable to do PT; wants to go for a walk Therapy Pain Assessment Pain Present Pain Present Denied Pain M4 PT-IP Mobility and Gait Start: 09/26/21 13:46 Freq: NEEDED Status: Active Protocol: Document 09/26/21 12:25 [facility] (Rec: 09/26/21 13:56 AB [id number]) PT-Bed Mobility Assessment Supine to Sit Supine to Sit Standby Assistance PT-Transfer Assessment Sit to and From Stand Sit to and from Stand Standby Assistance Equipment Transfer Assistive Device Gait Belt Orthotic/Prosthetic Devices or Brace: No Transfers Transfer Destination Chair Transfer Technique ambulated Comments Mobility Comments completed supine to sit SBA. sit to stand SBA and ambulated in room SBA and pt sat on chair. pt wants to walk and completed sit to stand SBA and ambulated in the hallway ~ 225 ft without AD initially SBA but towards end of ambulation requiring CGA with increase unsteadiness with walking. pt agreed to sit on the chair. pt can be impulsive . positioned pt on the chair. call light and table placed within reach. Gait Assessment Gait Gait Assistance Required: Standby Assistance,Contact Guard Assist,1 Person Assist Distance (Feet) 225 Able to Maintain Weight Bearing Status Yes During Gait Assistive Devices Assistive Device None,Gait Belt Orthotic/Prosthetic Devices or Brace: No Gait Deviations General Gait Pattern Antalgic,Decreased Stride Length,Decreased Feet Clearance Factors Limiting Gait Function Factors Limiting Gait Function Decreased Activity Tolerance, Decreased Strength,Poor Balance,Poor Safety Awareness PT-Balance Assessment Sitting Balance and Reactions Static Sitting Balance Ability Good Dynamic Sitting Balance Ability Good Standing Balance and Reactions Static Standing Balance Ability Good Dynamic Standing Balance Ability Fair Device Used without AD M5 PT-IP Objective Assessments Start: 09/26/21 13:46 Freq: NEEDED Status: Active Protocol: Document 09/26/21 12:25 [facility] (Rec: 09/26/21 13:56 AB [id number]) Orientation Orientation/Cognition Level of Alertness Alert Orientation Name,Situation Safety Awareness Decreased Safety Awareness Comments pt has difficulty talking but able to comprehend and expresses needs throught body language and writing board. Gross Range of Motion Lower Extremity ROM Assessment Within Functional Limits Strength Lower Extremity Strength Assessment Within Functional Limits Sensation Assessment Sensation Gross Sensation WNL Muscle Tone Muscle Tone WNL Yes M6 PT-IP Treatment Start: 09/26/21 13:46 Freq: NEEDED Status: Active Protocol: Document 09/26/21 12:25 [facility] (Rec: 09/26/21 13:56 AB [id number]) Physical Therapy Treatment Education Education Provided Safety M7 PT-IP Assessment and Plan Start: 09/26/21 13:46 Freq: NEEDED Status: Active Protocol: Document 09/26/21 12:25 [facility] (Rec: 09/26/21 13:56 AB [id number]) PT Summary Assessment and Plan Potential Rehabilitation Potential Good Status of Condition at Evaluation Evolving Summary Impairments Pain,ROM,Strength,Balance, Coordination,Tone,Cognition, Bed Mobility,Transfers,Gait, Activity Tolerance Assessment Summary pt requiring SBA to CGA with mobility without AD. pt initially requiring SBA with ambulation without AD but with increase unsteadiness towards end of ambulation requiring CGA. will continue to assess progress for safe d/c plan. Goals Bed Mobility Goal Independent Transfer Goal Independent Gait Goal Independent Gait Distance 250 Days to Meet Goals 5 Frequency of Treatment Frequency Of Treatment Once a Day Treatment Plan Physical Therapy Treatment Plan Bed Mobility Training,Transfer Training,Gait Training, Therapeutic Exercise,Balance Retraining,Discharge Planning, Hot or Cold Pack,Neuromuscular Re-ed,Coordination Retraining Recommendations To Nursing Amount of Assist Needed 1 Person Assist Discharge Recommendations PT Discharge Recommendations Home with Assistance Transportation Needs at Discharge Private Vehicle,Wheelchair/ Cabulance
--- NOTE | 2021-09-26 15:28 | P.PN_ITS ---
Subjective Subjective Date Patient Seen: 09/26/21 Interval history: This is a 71 year old male admitted with an acute CVA. He is unable to speak, he swallow is a bit better today and he is able to handle some oral secretions today though speech would not evaluate him today. Discussed goals of care with the patient, he is able to communicate via written communication quite well. He denies any pain today. He is interested in feeding tube if needed, though agrees to wait a bit longer prior to determining if he needs this. Exam Vital Signs (past 8 hours): - 09/26/21 08:00 09/26/21 08:50 09/26/21 11:01 Temperature 98.4 F Pulse Rate 98 H Respiratory Rate 18 Blood Pressure 155/76 H Pulse Oximetry 96 95 95 09/26/21 15:01 Temperature 98.1 F Pulse Rate 90 Respiratory Rate 19 Blood Pressure 152/80 H Pulse Oximetry 99 Oxygen Delivery Method Room Air Oxygen Flow Rate 0 Narrative Exam Narrative: GEN: no acute distress HEENT:moist mucous membranes, PERRL NECK: trachea midline, no JVD CV: Regular rate and rhythm without murmur PULM:clear bilaterally, no wheezes, rales, crackles ABD:bowel sounds normal, soft, non-tender, nondistended, no organomegaly EXT:: Non-tender, no edema NEURO:difficulty sticking out tongue, unable to speak, difficulty swallowing, otherwise CN 2-12 intact, sensation normal, upper and lower extremities with 5/5 strength SKIN:? No rash, erythema Objective Labs Result Diagrams: 09/26/21 04:15 09/26/21 04:15 Labs: Laboratory Results - last 24 hr 09/25/21 09/25/21 09/25/21 17:00 17:00 17:00 WBC 9.7 RBC 4.87 Hgb 14.9 Hct 45.5 MCV 93.5 MCH 30.6 MCHC 32.7 RDW 15.2 H Plt Count 234 Neut % (Auto) 66.6 Lymph % (Auto) 20.[address] [place] % (Auto) 10.0 Eos % (Auto) 2.6 Baso % (Auto) 0.8 Neut # (Auto) 6400 Lymph # (Auto) 1900 [place] # (Auto) 1000 H Eos # (Auto) 300 Baso # (Auto) 100 PT 12.6 INR 1.1 APTT 31 Sodium 141 Potassium 4.2 Chloride 105 Carbon Dioxide 27 BUN 21 H Creatinine 1.00 Estimated GFR > 60 BUN/Creatinine Ratio 21.0 Glucose 99 Hemoglobin A1c Calcium 9.4 Magnesium 2.1 Total Bilirubin 1.1 AST 48 ALT 38 Alkaline Phosphatase 76 Total Creatine Kinase 613 H CK-MB (CK-2) 6.16 H CK-MB (CK-2) Rel Index 1.0 L Troponin I 0.012 Total Protein 8.9 H Albumin 5.1 H Globulin 3.8 Albumin/Globulin Ratio 1.3 Urine Color Urine Appearance Urine pH Ur Specific [place] Urine Protein Urine Glucose (UA) Urine Ketones Urine Occult Blood Urine Nitrate Urine Bilirubin Ur Bilirubin Confirm Urine Urobilinogen Ur Leukocyte Esterase Urine RBC Urine WBC Urine Bacteria Ur Culture Indicated? U Opiates 300ng/mL cut Ur Oxycodone Screen Urine Methadone Screen Ur Barbiturates Screen U Tricyclic Antidepress Ur Phencyclidine Scrn Ur Amphetamines Screen U Methamphetamines Scrn Ur MDMA Scrn (Ecstasy) U Benzodiazepines Scrn Urine Cocaine Screen U Marijuana (THC) Screen SARS-CoV-2 (PCR) 09/25/21 09/26/21 09/26/21 19:45 04:15 04:15 WBC 8.9 RBC 4.42 L Hgb 13.7 Hct 40.7 L MCV 92.1 MCH 30.9 MCHC 33.6 RDW 14.8 Plt Count 186 Neut % (Auto) 60.4 Lymph % (Auto) 21.[address] [place] % (Auto) 12.3 Eos % (Auto) 5.1 H Baso % (Auto) 0.8 Neut # (Auto) 5400 Lymph # (Auto) 1900 [place] # (Auto) 1100 H Eos # (Auto) 500 H Baso # (Auto) 100 PT INR APTT Sodium 142 Potassium 3.7 Chloride 109 H Carbon Dioxide 26 BUN 19 Creatinine 0.89 Estimated GFR > 60 BUN/Creatinine Ratio 21.3 Glucose 89 Hemoglobin A1c Calcium 8.4 Magnesium Total Bilirubin AST ALT Alkaline Phosphatase Total Creatine Kinase CK-MB (CK-2) CK-MB (CK-2) Rel Index Troponin I Total Protein Albumin Globulin Albumin/Globulin Ratio Urine Color Urine Appearance Urine pH Ur Specific [place] Urine Protein Urine Glucose (UA) Urine Ketones Urine Occult Blood Urine Nitrate Urine Bilirubin Ur Bilirubin Confirm Urine Urobilinogen Ur Leukocyte Esterase Urine RBC Urine WBC Urine Bacteria Ur Culture Indicated? U Opiates 300ng/mL cut Ur Oxycodone Screen Urine Methadone Screen Ur Barbiturates Screen U Tricyclic Antidepress Ur Phencyclidine Scrn Ur Amphetamines Screen U Methamphetamines Scrn Ur MDMA Scrn (Ecstasy) U Benzodiazepines Scrn Urine Cocaine Screen U Marijuana (THC) Screen SARS-CoV-2 (PCR) Negative 09/26/21 09/26/21 09/26/21 04:15 04:50 04:50 WBC RBC Hgb Hct MCV MCH MCHC RDW Plt Count Neut % (Auto) Lymph % (Auto) [place] % (Auto) Eos % (Auto) Baso % (Auto) Neut # (Auto) Lymph # (Auto) [place] # (Auto) Eos # (Auto) Baso # (Auto) PT INR APTT Sodium Potassium Chloride Carbon Dioxide BUN Creatinine Estimated GFR BUN/Creatinine Ratio Glucose Hemoglobin A1c 5.7 Calcium Magnesium Total Bilirubin AST ALT Alkaline Phosphatase Total Creatine Kinase CK-MB (CK-2) CK-MB (CK-2) Rel Index Troponin I Total Protein Albumin Globulin Albumin/Globulin Ratio Urine Color Yellow Urine Appearance Clear Urine pH 5.0 Ur Specific [place] 1.020 Urine Protein Trace H Urine Glucose (UA) Negative Urine Ketones 1+ H Urine Occult Blood 1+ H Urine Nitrate Negative Urine Bilirubin 1+ H Ur Bilirubin Confirm Negative Urine Urobilinogen 2.0 H Ur Leukocyte Esterase Negative Urine RBC None seen Urine WBC 0-1/hpf Urine Bacteria None seen Ur Culture Indicated? Cult not indicated U Opiates 300ng/mL cut Negative Ur Oxycodone Screen Negative Urine Methadone Screen Negative Ur Barbiturates Screen Negative U Tricyclic Antidepress Negative Ur Phencyclidine Scrn Negative Ur Amphetamines Screen Negative U Methamphetamines Scrn Negative Ur MDMA Scrn (Ecstasy) Negative U Benzodiazepines Scrn Negative Urine Cocaine Screen Negative U Marijuana (THC) Screen Negative SARS-CoV-2 (PCR) [facility] Social History household members: none Smoking Status: Never smoker Assessment & Plan Assessment & Plan narrative: Mr. Rogers is a 71M with PMH CVA, mechanical heart valve admitted for presumed CVA. 1. CVA, subacute to acute -patient presents days after start of symtpoms, outside of window for TPA -ct head with no acute process, cta head/neck shows L ICA 55% stenosis -ordered for MD aspirin, add plavix and statin once patient can swallow or feeding tube is obtained. -waiting to see if he can tolerate oral secretions currently for SYSTEMS LIBRARIAN evaluation. -patient possibly will need feeding tube, if continued difficulties will likely discuss PEG placement with general surgery tomorrow. -ordered for MRI and ECHO, though may not be able to perform MRI given heart valve. -a1c 5.7%, lipids ordered -keep on tele -[facility] ordered q4 for now 2. Elevated blood pressure -allow permissive hypertension and treat only if sbp >220 3. Atrial fibrillation -rate controlled currently -ECHO ordered -consider anticoagulation to start near discharge pending MRI 4. Mechanical heart valve -continue aspirin -patient has heart valve cards to eval if can get MRI CODE: Full Proxy: Friend, Darryl Brush I have utilized all available resources to reconcile the patient's home medica tions Time Spent With Patient Critical Care time: I spent a total of [] minutes of critical care time on this patient's care t santos; this time is exclusive of procedural time.
--- NOTE | 2021-09-26 20:52 | DI.ECHO.S_ITS ---
[facility] +---------+ : : [address] [address] : : : : [id number] : : : : Phone: [phone]+ Echocardiogram Report + + :Name: RUBEN MONTESINOS Study Date: 09/26/2021 Height: 72 in : :[facility] ReadingLocation: Weight: 178 lb : : Gender: Male BSA: 2.0 m2 : :: 1950 Age: 71 yrs BP: 148/84 mmHg: :Reason For Study: Stroke : :History: Mitral valve replacement-mechanical : : Performed By: Maggie Garay : :Referring: JENNIFER OCHOA : + + Interpretation Summary 1) Mildly increased left ventricular tihckness with normal size and low normal systolic function (EF about 50%). 2) Grossly, normal right ventricular size with mildly reduced function. 3) The left atrium is severely dilated. The right atrium is moderately dilated. 4) Mechanical mitral prosthesis present that appears well seated and opens well (liimted visualization due to artifacts). Mild inflow gradient of 4.25mmHg and no regurgitation based on doppler evaluation. 5) There is mild aortic stenosis (valve area 1.4cm2, mean gradient 12mm Hg). 6) The IVC is dilated (diameter is greater than 2.1 cm) and it collapses less than 50% with a sniff. This suggests a high right atrial pressure of 15 mm Hg. 7) No prior Echo available for comparison. Procedure: A two-dimensional transthoracic echocardiogram with color flow and Doppler was performed. The study quality was technically adequate. There is no prior echocardiogram noted for this patient. A contrast injection of Definity was performed to improve assessment of LV function. The patient was in atrial fibrillation with heart rates between 72-105 bpm during the exam. Left Ventricle: Left ventricular wall thickness is mildly increased. The left ventricle is normal in size. There is no thrombus. Left ventricular ejection fraction is estimated to be 50 +/- 5%. Diastolic function could not be accurately assessed due to confounding valvular disease. Right Ventricle: The right ventricle is not well visualized. The right ventricle is grossly normal size. Right ventricular systolic function is mildly reduced. Atria: The left atrium is severely dilated. The right atrium is moderately dilated. There is no Doppler evidence for an interatrial shunt. Mitral Valve: There is a mechanical mitral valve. The prosthetic mitral valve is well-seated. The prosthetic mitral valve is not well visualized. Cannot assess the presence or severity of regurgitation due to shielding from the prosthesis. Aortic Valve: The aortic valve is trileaflet. The aortic valve is moderately calcified. The peak aortic velocity is 2.2 m/sec. The aortic valve mean gradient is 12.1 mmHg. The calculated aortic valve area is 1.4 cm2. There is mild aortic stenosis. There is trace aortic regurgitation. Tricuspid Valve: The tricuspid valve is not well visualized, but is grossly normal. Pulmonary artery pressures cannot be estimated because of the lack of a measurable TR jet velocity but the IVC suggests a CVP of around 15 mmHg. Pulmonic Valve: The pulmonic valve leaflets are thin and pliable; valve motion is normal. There is a trace or physiologic amount of pulmonic regurgitation. Great Vessels: The aortic root is normal size. The ascending aorta is at the upper limits of normal in size. The aortic arch could not be visualized. The IVC is dilated (diameter is greater than 2.1 cm) and it collapses less than 50% with a sniff. This suggests a high right atrial pressure of 15 mm Hg. Pericardium/ Pleura There is no pericardial effusion. MMode/2D Measurements & Calculations LVIDd: 4.7 cm LVOT diam: 2.2 cm LVIDs: 3.4 cm Ao root diam: 3.3 cm FS: 27.1 % asc Aorta Diam: 3.4 cm IVSd: 1.0 cm LVPWd: 1.1 cm LV reina. diameter/BSA (cm/m^2): 2.3 LV sys. diameter/BSA (cm/m^2): 1.7 LA A2 area: 26.4 cm2 RA long axis: 5.4 cm LA A4 area: 32.4 cm2 RA area: 22.4 cm2 LA length (vol): 6.0 cm RA vol: 79.7 ml LA vol: 121.5 ml RA : 39.3 ml/m2 LA vol index: 59.9 ml/m2 IVC diam: 2.6 cm TAPSE: 1.5 cm Doppler Measurements & Calculations Ao V2 max: 220.1 cm/sec LVOT Max Jame: 86.6 cm/sec Ao V2 mean: 166.8 cm/sec LV V1 max P.0 mmHg Ao max P.4 mmHg LV V1 VTI: 19.1 cm Ao mean P.1 mmHg LEO(I,D): 1.4 cm2 Ao V2 VTI: 52.9 cm LEO(V,D): 1.5 cm2 sev ratio: 0.36 LEO indexed to BSA (cm^2/m^2): 0.70 MVA(VTI): 1.6 cm2 PA V2 max: 85.0 cm/sec PA V2 mean: 60.4 cm/sec PA mean P.6 mmHg PA pr(Accel): 45.6 mmHg MV V2 mean: 89.2 cm/sec SV(LVOT): 74.8 ml MV mean P.3 mmHg MV V2 VTI: 46.3 cm Reading Physician:02:09 PM
[2021-09-27] VITALS (8 sets, daily range): BP systolic 122–158; BP diastolic 60–86; PULSE 70–89; RESP 13–18; TEMP 36.2–37.2; O2SAT 93–96
[2021-09-27] MEDS: SODIUM CHLORIDE 0.9% 1,000 ML 150 ML IV ×3 (01:13→19:18)
[2021-09-27 07:11] LABS: Add Manual Diff / Slide Review NO; Basophils Absolute Auto 100 /uL (0-100); Basophils Percent Auto 0.8 % (0-2); Eosinophils Absolute Auto 500 /uL (0-450); Eosinophils Percent Auto 5.6 % (2-4); Hematocrit 39.4 % (41-53); Hemoglobin 12.9 g/dL (13.5-17.5); Lymphocytes Absolute Auto 1300 /uL (1100-4500); Mean Corpuscular HGB Conc 32.9 % (30-36); Mean Corpuscular Hemoglobin 30.6 PG (26-34); Mean Corpuscular Volume 93.1 fL (80-100); Monocytes Absolute Auto 900 /uL (0-900); Monocytes Percent Auto 10.6 % (3-14); Neutrophils Absolute Auto 5900 /uL (1500-7000); Platelet Count 190 X10^3/uL (150-400); Red Blood Cell Count 4.23 X10^6/uL (4.5-5.9); Red Cell Distribution Width 14.9 % (11.6-14.8); White Blood Cell Count 8.7 X10^3/uL (4.5-11.0)
[2021-09-27 07:38] LABS: Alanine Aminotransferase 54 IU/L (<50); Albumin 3.9 g/dL (3.5-5.0); Albumin Globulin Ratio 1.3 (1.0-2.8); Alkaline Phosphatase 62 U/L (38-126); Aspartate Aminotransferase 58 IU/L (17-59); Bilirubin Total 0.8 mg/dL (0.2-1.3); Blood Urea Nitrogen 15 mg/dL (9-20); Carbon Dioxide 24 mmol/L (22-32); Chloride 113 mmol/L (98-107); Estimated Glomerular Filt Rate > 60 mL/min (>60); Glucose 88 mg/dL (80-110); HEMOLYSIS < 15 (0-50); Phosphorous 2.3 mg/dL (2.3-3.7); Potassium 3.7 mmol/L (3.4-5.1); Sodium 142 mmol/L (137-145); Total Protein 6.9 g/dL (6.3-8.2)
--- NOTE | 2021-09-27 09:25 | CM.DPNOTE ---
Faxed referral packet to [facility] & [facility] per Betty. Received fax conf. Emily Kuo CM Assist.
[2021-09-27] MEDS: ENOXAPARIN 40 MG/0.4 ML SYRINGE SUBCUT (09:35)
[2021-09-27] MEDS: ASPIRIN 300 MG SUPP PR (09:35)
--- NOTE | 2021-09-27 10:30 | ST.IPCSEOM ---
Visit Care Team Role Provider Type Josseline Smith DO Emergency Provider Physician Referring Provider Specialty: Emergency Medicine Address: [address] [place] [address], [id number] Email: [email or web address] Rao Virgen MD Admit Provider Physician Attending Provider Specialty: Hospitalist Address: [address] [place] [address], [id number] Fax: Email: [email or web address] Speech-Language Pathology Swallow Evaluation PHYSICAL THERAPY INSTRUCTOR Clinical Swallow Evaluation Start: 09/27/21 10:11 Freq: Status: Active Protocol: Document 09/27/21 10:11 EVELIN (Rec: 09/27/21 10:30 ZS [id number]) Clinical Swallow Evaluation Session Time Visit Start Time 09:30 Visit Stop Time 09:50 Total Visit Minutes 20 Setting Assessment Location Acute Care Visit Type Note Type Initial evaluation Next Note Type Next Note Type Treatment Note Patient Information Identification Type Name,Wristband History Per H&P: Mr. Rogers is a 71M with H mechanical cardiac valve, CVA who presents with inability to swallow and speak . He takes aspirin but no anticoagulation He notes that he has felt abnormal for 3 days. He initially had some left handed nubmness and weakness that has now resolved . He developed inability to speak and difficulty to swallow even his own secretions. Pt states something similar happened to this 2 years ago and the pt never went to the doctor between today and then. Pt had speech symptoms back then and it gradually got better. Subjective Observations Pt was laying in bed when PHYSICAL THERAPY INSTRUCTOR arrived. He reported some improvement in volitional tongue movement, but still significantly limited. Reported by Patient Other Symptoms Difficulty swallowing liquids, Difficulty swallowing pills, Difficulty swallowing solids Comment Pt unable to swallow though NSG and pt reported slight improvement in secretion management today. Current Diet Nothing by mouth Objective Assessment Mental Status Alert,Responsive,Cooperative Oral Integrity WFL Dentition Within normal limits Lip Function Severe impairment Observation of Lips at Rest Symmetrical Pucker Reduced range of motion, Reduced strength Lip Retraction Reduced range of motion,Left sided weakness/Drooping,Right sided weakness/Drooping Tongue Function Severe impairment Tongue Protrusion Reduced range of motion, Reduced strength Tongue Lateralization Reduced range of motion, Reduced strength Jaw Function Severe impairment Observations of Jaw at Rest Within normal limits Jaw Opening Reduced range of motion, Reduced strength Comment Completed oral mechanism exam with pt. Pt presents with severely impaired strength and ROM of all oral structures. Limited observation of intraoral structures due to severe impairment of strength and ROM when opening mouth. Dentition appears WNL. Unable to view soft palate or tongue at rest due to limited ROM of mouth. Pt is unable to protrude tongue, though has limited ability to lateralize tongue within mouth. Pt is unable to pucker lips or smile volitionally. Pt reflexively smiles and is able to slow return to resting state, but cannot smile volitionally. Did not complete PO trials due to pt's severely impaired strength and ROM of oral structures which place him at high risk for aspiration. Provided handout with oral motor exercises to increase strength, ROM, and volitional control of oral structures. Pt demonstrated each exercise and reported understanding of exercises. Findings Comment Pt presents with severely impaired strength and ROM of oral structures that place him at high risk for aspiration. Recommend pt remains NPO at this time as he is at high risk for aspiration. Will continue to monitor for assessment with PO trials as pt improves strength and ROM of oral structures. Impact on Safety and Functioning Risk for aspiration,Risk for inadequate nutrition/hydration Recommendations Instrumental Assessment No Swallowing Treatment Yes Recommended Solids Nothing by Mouth Recommended Liquids Nothing by Mouth Medication Recommendations Not Recommended by Mouth Education Patient/Caregiver Education Described results of evaluation,Patient expressed understanding of evaluation, Patient expressed agreement with goals & treatment plans, Patient expressed understanding of safety precautions,Patient expressed understanding of feeding recommendations Goals Short-term Goals 1. The pt will perform exercises to increase strength , coordination, and ROM of swallow musculature independently to reduce risk of aspiration and increase comfort with oral intake. Long-term Goals The pt will safely tolerate least restrictive diet to meet his nutrition and hydration needs.
[2021-09-27] MEDS: POTASSIUM PHOSPHATE 15 MMOL in SODIUM CHLORIDE 0.9% 250 ML 63.75 MMOL IV (10:47)
--- NOTE | 2021-09-27 11:29 | PT.IIE ---
Physical Therapy Inpatient Evaluation/Re-Eval M1 PT/OT-IP Prior Functional Status Start: 09/26/21 13:46 Freq: NEEDED Status: Active Protocol: Document 09/26/21 14:23 [facility] (Rec: 09/26/21 14:45 [facility] [id number]) Medical Review Prior Functional Status Medical History Reviewed Yes Communication pt unable to talk but able to comprehend and answer questions by nodding/shaking his head, use of hand gestures , also uses writing tablet to assist with communication Mobility and Gait pt was independent with all mobilities and ambulation without AD but occasionally uses a SPC for outdoor mobility; [place] and uses SPC for safety Activities of Daily Living and IADL's Completely independent for all his ADL,IADL, but does not drive. Social History Household Members none Living Arrangements House Number of Floors (Floors) One Floor Number of Stairs To Enter/Railing? ramp to enter Home Environment Standard Height Toilet,Walk in Shower,Ramp Home Equipment Straight Cane M2 PT-IP Current Condition Start: 09/26/21 13:46 Freq: NEEDED Status: Active Protocol: Document 09/26/21 12:25 AB (Rec: 09/26/21 13:56 AB [id number]) Physical Therapy Current Condition Current Condition Evaluation Date 09/26/21 Treatment Diagnosis CVA; difficulty in walking Onset Date 09/25/21 M3 PT-IP Subjective Start: 09/26/21 13:46 Freq: NEEDED Status: Active Protocol: Document 09/27/21 11:19 [facility] (Rec: 09/27/21 11:29 [facility] [id number]) Subjective Physical Therapy Visit Type Type Treatment Note Visit Start Time 10:50 Visit Stop Time 11:15 Total Visit Minutes 24 Physical Therapy Visit Comments Patient Comments Using tablet pad to communicate - Pt states he is still unable to cough/sneeze/ vocalize. Reports feeling frustrated about that. He is eager to mobilize with PT. Therapy Pain Assessment Pain When Pain Assessed At Rest Pain Present Pain Present Denied Pain M4 PT-IP Mobility and Gait Start: 09/26/21 13:46 Freq: NEEDED Status: Active Protocol: Document 09/27/21 11:19 BC (Rec: 09/27/21 11:29 BC [id number]) PT-Transfer Assessment Sit to and From Stand Sit to and from Stand Independent Equipment Transfer Assistive Device None Transfers Transfer Destination Bed,Chair Transfer Technique Stand Step Pivot Transfer Ability Level of Assist Independent Comments Mobility Comments During mobility in room: Pt was able to don/doff pants I' ly; safely reach down from standing to objects on floor without LOB; stand without assist while brushing hair. Gait Assessment Gait Gait Assistance Required: Independent Distance (Feet) 450 Assistive Devices Assistive Device None Gait Deviations General Gait Pattern Within Normal Limits Comments Gait Comments No abnormal gait pattern noted . Able to dual task with ambulation. Managed balance during speed and direction changes and head turns. No fatigue noted today or listing of gait pattern as seen yesterday with PT. PT-Balance Assessment Sitting Balance and Reactions Static Sitting Balance Ability Normal Dynamic Sitting Balance Ability Normal Standing Balance and Reactions Static Standing Balance Ability Normal Dynamic Standing Balance Ability Normal Functional Assessments Functional Tests Tinetti Balance and Gait Assessment M5 PT-IP Objective Assessments Start: 09/26/21 13:46 Freq: NEEDED Status: Active Protocol: Document 09/26/21 12:25 AB (Rec: 09/26/21 13:56 AB [id number]) Orientation Orientation/Cognition Level of Alertness Alert Orientation Name,Situation Safety Awareness Decreased Safety Awareness Comments pt has difficulty talking but able to comprehend and expresses needs through body language and writing board. Gross Range of Motion Lower Extremity ROM Assessment Within Functional Limits Strength Lower Extremity Strength Assessment Within Functional Limits Sensation Assessment Sensation Gross Sensation WNL Muscle Tone Muscle Tone WNL Yes M6 PT-IP Treatment Start: 09/26/21 13:46 Freq: NEEDED Status: Active Protocol: Document 09/27/21 11:19 (Rec: 09/27/21 11:29 [id number]) Physical Therapy Treatment Education Education Provided Safety M7 PT-IP Assessment and Plan Start: 09/26/21 13:46 Freq: NEEDED Status: Active Protocol: Document 09/27/21 11:19 BC (Rec: 09/27/21 11:29 [id number]) PT Summary Assessment and Plan Potential Rehabilitation Potential Excellent Status of Condition at Evaluation Stable Summary Progress Towards Goals Safe For Discharge,Goals Met Assessment Summary Pt agreeable to PT today. Using tablet for communication needs. Pt demonstrates safe mobility in room with manipulation of objects, reaching tasks, and dressing. He was able to ambulate without gait pattern deviations noted on yesterday' s assessment. He presents with good balance and independent mobility. Recommend d/c from IPPT at this time due to goals met. Pt should continue to mobilize with nsng supervision as needed. Frequency of Treatment Frequency Of Treatment Discharge Recommendations To Nursing Amount of Assist Needed Independent,Standby Assistance Discharge Recommendations PT Discharge Recommendations Home Transportation Needs at Discharge Private Vehicle
--- NOTE | 2021-09-27 12:45 | OT.IP.TRT ---
Current Diagnoses Cerebral infarction, unspecified (09/25/21) Surgery Performed Operation Date: 09/28/21 15:15 <No data on this case meets the specified criteria> Occupational Therapy Treatment Note M2 OT-IP Current Condition Start: 09/26/21 14:23 Freq: Status: Active Protocol: Document 09/26/21 14:23 [facility] (Rec: 09/26/21 14:45 [facility] [id number]) Occupational Therapy Current Condition Current Condition Evaluation Date 09/26/21 Treatment Diagnosis CVA, decreased coordination Diagnosis Onset Date 09/25/21 M3 OT- IP Subjective and Pain Start: 09/26/21 14:23 Freq: Status: Active Protocol: Document 09/27/21 14:34 [facility] (Rec: 09/27/21 14:35 [facility] [id number]) OT- Subjective Occupational Therapy Visit Type Type Treatment Note Visit Start Time 11:44 Visit Stop Time 12:45 Total Visit Minutes 61 Occupational Therapy Visit Comments Patient Comments Pt agreed to redo 9 hole peg test and Rembert making Part b. Patient/Caregiver Goals To go home OT Pain Assessment Pain When Pain Assessed At Rest Pain Present Pain Present Denied Pain M4 OT- IP ADL's Start: 09/26/21 14:23 Freq: Status: Active Protocol: Document 09/27/21 14:24 [facility] (Rec: 09/27/21 14:34 [facility] [id number]) OT DHW-Uest-Oqhearq Comments OT Self-Feeding Comments Pt is NPO OT ADL-Grooming Comments OT Grooming Comments Pt able to brush his hair. OT ADL-Oral Care Comments Oral Care Comments NPO OT ADL-Dressing Comments OT Dressing Comments Not performed. OT ADL-Toileting Comments OT Toileting Comments Pt states has been able to use the toilet on his own. OT ADL-Bathing Comments OT Bathing Comments Not performed. M5 OT- IP IADL's Start: 09/26/21 14:23 Freq: Status: Active Protocol: Document 09/26/21 14:23 [facility] (Rec: 09/26/21 14:45 [facility] [id number]) OT-Instrumental Activities of Daily Living Home Safety Awareness Home Safety Comments to further assess M6 OT- IP Functional Cognition Start: 09/26/21 14:23 Freq: Status: Active Protocol: Document 09/27/21 14:24 [facility] (Rec: 09/27/21 14:34 [facility] [id number]) Cognitive Factors Limiting Selfcare Function Cognitive Ability Ability to Follow Commands Able to Follow One Step Commands Executive Function Ability Unable to Remember Details Cognitive Comments Cognitive Assessment Comments Today pt having more difficulty with Rembert Making Part B and forgetting to alternate between numbers and letter and needing cues throughout the task. Therefore today with noted severe impairments for visual attention, task switching, speed of processing, mental flexibility, and executive functioning. Pt aware that he is thinking slowly. Pt's hand writing initially very legible and spelling correctly but as he tires handwriting in more illegible and spelling having more mistakes. OT- Vision and Hearing OT- Vision Assessment Visual Attentiveness WFL Occular Pursuits WFL Visual Convergence WFL Visual Agrawal WFL Diplopia Absent M8 OT- IP Objective Assessments Start: 09/26/21 14:23 Freq: Status: Active Protocol: Document 09/26/21 14:23 [facility] (Rec: 09/26/21 14:45 [facility] [id number]) OT Gross Range of Motion Upper Extremity Range of Motion Assessment Within Functional Limits OT Strength Upper Extremity Strength Assessment Within Functional Limits OT- Coordination Assessment Upper Extremity Finger to Nose Test Within Functional Limits Finger Tapping Test Within Functional Limits Comments Coordination Comments 9 hole peg test 50% for age at 25sec for right hand and left hand 58 seconds Today left hand improved to 42seconds from 58 seconds yesterday. Still decreased for proprioception and kinesthesia for left wrist and hand. OT-Muscle Tone Assessment Muscle Tone WNL Yes OT Sensation Assessment Comments Summary Comments Pt states left hand feels different from the right side. Pt decreased for kinesthesia and proprioception for leftt hand and wrist. M9 OT- IP Assessment and Plan Start: 09/26/21 14:23 Freq: Status: Active Protocol: Document 09/27/21 14:24 [facility] (Rec: 09/27/21 14:34 [facility] [id number]) OT Summary Assessment and Plan Potential Rehabilitation Potential Good Analytic Complexity at Evaluation Moderate Summary OT Impairments Balance,Coordination, Functional Cognition, Functional Mobility,Self- Feeding,Grooming,Dressing, Toileting,Bathing,Toilet Transfers,Shower Transfers Progress Towards Goals Progressing Toward Goals Assessment Summary Pt having more difficulty with higher level cognitive needs today and increased time with Rembert making Part B today. Pt able to write correctly solutions for home safety questionnaire accurately. Pt insistent on going home even if if means possible getting a PEG tube placed. Pt writes that he has friends that will stay and care for him. Still recommend possible acute rehab pending progress for swallowing needs, otherwise home with 24/7 and outpt EMAIL DESIGNER and OT. Goals Grooming Goal Independent Dressing Goal Independent Toileting Goal Independent Bathing Goal Independent Toilet Transfer Goal Independent Shower Transfer Goal Independent OT-Other Goals All goals with use incorporation of left hand for efficient and smooth movements. Days to Meet Goals 20 Frequency of Treatment Frequency Of Treatment Once a Day Treatment Plan OT Treatment Plan ADL Training,Functional Cognition Training,Functional Mobility,Patient/Family Education,Discharge Planning Other Treatment Recommendations and Next shower Treatment Focus Discharge Recommendations OT Discharge Recommendations Home with 24/7 Assist Available,Acute Rehab, Outpatient PT Transportation Needs at Discharge Private Vehicle
--- NOTE | 2021-09-27 12:51 | DIET.CONS ---
Addendum entered by Shameka Callaway 09/27/21 13:13: Interventions: 1. Recc nutrition support via continuous NG with transition to bolus PEG feedings per hospitalist. Nasogastric feeding: Jevity 1.2 fed continuously via NG beginning at 25mL/h titrating up by 10-20mL q6h as tolerated until reaches goal feed of 70mL/h. 250mL free water flushes q4h. PEG feeding: Jevity 1.2 bolus feeds (237mL x7/d) @800, 1000, 1200, 1400, 1600, 1800, 2000 with 250mL free water q4h. Formula provides: 1356mL free water, 2016 kcals, 93g PRO, 285g CHO, 66g fat, free water flushes provide 1.5L with total feed plus flush volume of 2856mL (35mL/kg). 2. HOB >30 degrees while NG fed to reduce risk of aspiration. Original Note: Dietary Consultation Note Admission Date: 09/25/2021 20:00 Assessment: 71y M with pmhx cardiac valve and CVA who has had progressive inability to speak, move mouth, or manage oral secretions. Pt has met c speech therapy x3 with strict NPO secondary to high risk for aspiration. Hospitalist Clint requests nutrition support recommendations, NG feeding and likely PEG placement while pt rehabs to try to regain ability for PO. Recc consideration of feeding into jejunum with high aspiration risk. If pt to have EN via jejunum recc continuous 12h nighttime feeding for better tolerance. Per UNIFIED COMMUNICATIONS ARCHITECT pt able to move tongue slightly side to side laterally but unable to protrude tongue or open mouth wide enough for viewing of soft palate. Pt currently Full Code and retains mental capacities, communicating c writing. Pt feels some of his mouth control is slowly returning, is better able to manage secretions. Pt renal fxn WNL, A1c currently 5.7 preDM. Ht: 182.88 cm Wt: 80.739 kg BMI: 24.1 Last BM: 09/27/21 (09/27/21 05:30) MNA: Regan Score: 21 Diet: 09/25/21 18:46 NPO Diet Diet Modifications: NPO Type: Strict Labs: RBC 4.23 X10^6/uL (4.5-5.9) L 09/27/21 06:49 Hgb 12.9 g/dL (13.5-17.5) L 09/27/21 06:49 Hct 39.4 % (41-53) L 09/27/21 06:49 Creatinine 0.79 mg/dL (0.66-1.25) 09/27/21 06:49 Hemoglobin A1c 5.7 % (4.0-6.0) 09/26/21 04:15 Nutrition Diagnosis: insuffient oral intake to meet physiological needs r/t inability to tolerate oral intake aeb pt s/p CVA, deemed high aspiration risk by speech therapy with strict NPO, pt amenable to short/possibly fpc nutrition support via enteral feeding NG or PEG. Interventions: 1. Recc nutrition support via continuous NG with transition to bolus PEG feedings per hospitalist. Nasogastric feeding: Jevity 1.2 fed continuously via NG beginning at 25mL/h titrating up by 10-20mL q6h as tolerated until reaches goal feed of 70mL/h. 250mL free water flushes q4h. PEG feeding: Jevity 1.2 bolus feeds (237mL x7/d) @800, 1000, 1200, 1400, 1600, 1800, 2000 with 250mL free water q4h. Formula provides: 1356mL free water, 2016 kcals, 93g PRO, 285g CHO, 66g fat, free water flushes provide 1.5L with total feed plus flush volume of 2856mL (35mL/kg). 2. HOB >30 degrees while NG fed to reduce risk of aspiration. EER: 2016kcals (25kcal/kg per BMI), 80-85g PRO (1-1.1g/kg per elder, renal fxn WNL) Monitoring/Evaluations: TF orders, TF tolerance, adjustment to bolus feeds for d/c if PEG placed, trending renal fxn and BG. Electronically Signed by: Shameka Callaway 09/27/21 12:51 [address] [address]
--- NOTE | 2021-09-27 12:55 | PM.PN.1 ---
Subjective Subjective Date Patient Seen: 09/27/21 Interval history: This is a 71 year old male admitted with an acute CVA. He is unable to speak, he swallow is a bit better today and he is able to handle some oral secretions today though speech would not evaluate him again today. Willing to move forward with feeding tube, he is beginning to feel a bit weak. Depending on timing of PEG placement with general surgery will discuss NG tube with patient for initiation of tube feeds. Exam Vital Signs (past 8 hours): - 09/27/21 09:00 09/27/21 09:28 Temperature 98.9 F Pulse Rate 88 Respiratory Rate 16 Blood Pressure 141/62 H Pulse Oximetry 93 95 Oxygen Delivery Method Room Air Oxygen Flow Rate 0 Narrative Exam Narrative: GEN: no acute distress HEENT:moist mucous membranes, PERRL NECK: trachea midline, no JVD CV: Regular rate and rhythm without murmur PULM:clear bilaterally, no wheezes, rales, crackles ABD:bowel sounds normal, soft, non-tender, nondistended, no organomegaly EXT:: Non-tender, no edema NEURO:difficulty sticking out tongue, unable to speak, difficulty swallowing, otherwise CN 2-12 intact, sensation normal, upper and lower extremities with 5/5 strength SKIN:? No rash, erythema Objective Labs Result Diagrams: 09/27/21 06:49 09/27/21 06:49 Labs: Laboratory Results - last 24 hr 09/27/21 09/27/21 06:49 06:49 WBC 8.7 RBC 4.23 L Hgb 12.9 L Hct 39.4 L MCV 93.1 MCH 30.6 MCHC 32.9 RDW 14.9 H Plt Count 190 Neut % (Auto) 68.0 Lymph % (Auto) 15.0 L [place] % (Auto) 10.6 Eos % (Auto) 5.6 H Baso % (Auto) 0.8 Neut # (Auto) 5900 Lymph # (Auto) 1300 [place] # (Auto) 900 Eos # (Auto) 500 H Baso # (Auto) 100 Sodium 142 Potassium 3.7 Chloride 113 H Carbon Dioxide 24 BUN 15 Creatinine 0.79 Estimated GFR > 60 BUN/Creatinine Ratio 19.0 Glucose 88 Calcium 8.0 L Phosphorus 2.3 Magnesium 2.0 Total Bilirubin 0.8 AST 58 ALT 54 H Alkaline Phosphatase 62 Total Protein 6.9 Albumin 3.9 Globulin 3.0 Albumin/Globulin Ratio 1.3 [facility], [facility] Social History household members: none Smoking Status: Never smoker Assessment & Plan Assessment & Plan narrative: Mr. Rogers is a 71M with PMH CVA, mechanical heart valve admitted for presumed CVA. 1. CVA, subacute to acute -patient presents days after start of symtpoms, outside of window for TPA -ct head with no acute process, cta head/neck shows L ICA 55% stenosis -ordered for CA aspirin, add plavix and statin once patient can swallow or feeding tube is obtained. -consulted general surgery for PEG placement today, depending on timing will discuss NG placement for feeding tube after BUILD MANAGER eval also stating patient not safe to attempt swallow eval yet. -ordered for MRI and ECHO, not be able to perform MRI given heart valve. -a1c 5.7% -keep on tele -NIH ordered q4 for now 2. Elevated blood pressure -allowed for permissive HTN -once feeding access obtained can start antihypertensive therapy, though BP only mildly elevated today. 3. Paroxysmal Atrial fibrillation -rate controlled currently -ECHO showed some mildly reduced RV function, -will need to start anticoagulation once enteral feeds begin, and after PEG placement ideally. 4. Mechanical heart valve -continue aspirin -patient has heart valve. CODE: Full Proxy: Friend, Darryl Brush I have utilized all available resources to reconcile the patient's home medications COVID-19 COVID-19 status: Negative Time Spent With Patient Critical Care time: I spent a total of [] minutes of critical care time on this patient's care today; this time is exclusive of procedural time.
--- NOTE | 2021-09-27 13:00 | CM.DANOTE ---
Initial DCP Assessment Note Pt is a 71 yo male, resident of [facility], arrives after having a stroke with inability to speak and swallow; also complaining of not being able to swallow his own secretions. PCP: No PCP listed (will need to discuss with patient) Payer: [facility] Reviewed chart. Patient is moving independently w/PT, recs from PT are= DC from inpatient services OT recommending Home w/ 09/12 assist vs Acute Rehab FIRESETTER has completed eval this morning and recommending NPO d/t pt's severely impaired strength and ROM of oral structures which place him at high risk for aspiration. Met w/patient to review above. Patent communicates well via hand gestures and writing on his tablet. Patient writes that he lives on [address] alone, very good friend Darryl is staying in a hotel in [place] and has made herself available to patient for assist once home, according to patient. Discussed acute inpatient rehab; asked if patient would consider. patient moves one hand back and forth as to signify more or less or maybe. Patient communicates his desire to return home upon medical clearance; confirms understanding that depending on patient's progress w/FIRESETTER (patient currently NPO) Hospitalist may ask general surgery for consult to discuss peg placement Patient's DC needs are dependent on daily progress w/ FIRESETTER/OT and potential for placement of a feeding tube to support hydration and nutrition Explained that CM team will be following closely to assist with coordination of DCP once medical POC unfolds, patient appreciative. [place] [facility] [place] [facility] Acute rehab w/patient's permission (dual planning). Patient has [facility], auth required for admission to either of these facilities CHAN Garnica Discharge Planning/Care Management CM Discharge Assessment Start: 09/27/21 12:53 Freq: Status: Active Protocol: Document 09/27/21 12:53 [facility] (Rec: 09/27/21 13:00 [facility] [id number]) Discharge Planning Assessment Assigned Drafting Engineer CHAN Jon DPOA/Assigned Designee Name Darryl Brush, friend Contact Information [phone] Advance Directives? No History Provided By Patient Prior Living Arrangements House Household Members none Type of transporation used prior to Relies on Others admit Independent with ADL's Yes Is patient alert and oriented? Yes Patient/Family Preference Home with Home Health Barriers to Discharge Yes Comment Severity of deficit (speech and cog) still being assessed. Therapy team unsure whether patient will be safe for return home if left unsupervised Discharge Plan Home Transportation Arrangement Friend Darryl Referrals Initiated None needed Additional Comment At this time
[2021-09-28] VITALS (14 sets, daily range): BP systolic 122–157; BP diastolic 65–84; PULSE 71–93; RESP 15–19; TEMP 36.6–37.3; O2SAT 92–99; BMI 24.1
[2021-09-28] MEDS: SODIUM CHLORIDE 0.9% 1,000 ML 150 ML IV ×2 (01:42→09:06)
[2021-09-28 06:15] LABS: Add Manual Diff / Slide Review NO; Basophils Absolute Auto 100 /uL (0-100); Eosinophils Absolute Auto 300 /uL (0-450); Eosinophils Percent Auto 4.3 % (2-4); Hematocrit 37.1 % (41-53); Hemoglobin 12.3 g/dL (13.5-17.5); Lymphocytes Absolute Auto 1300 /uL (1100-4500); Lymphocytes Percent Auto 16.1 % (25-40); Mean Corpuscular Hemoglobin 30.7 PG (26-34); Mean Corpuscular Volume 92.8 fL (80-100); Monocytes Absolute Auto 900 /uL (0-900); Monocytes Percent Auto 11.6 % (3-14); Neutrophils Absolute Auto 5400 /uL (1500-7000); Platelet Count 164 X10^3/uL (150-400); Red Blood Cell Count 3.99 X10^6/uL (4.5-5.9); Red Cell Distribution Width 14.5 % (11.6-14.8)
[2021-09-28 06:27] LABS: Alanine Aminotransferase 53 IU/L (<50); Albumin 3.5 g/dL (3.5-5.0); Albumin Globulin Ratio 1.2 (1.0-2.8); Alkaline Phosphatase 51 U/L (38-126); Aspartate Aminotransferase 50 IU/L (17-59); BUN Creatinine Ratio 17.1 (6-22); Bilirubin Total 0.9 mg/dL (0.2-1.3); Blood Urea Nitrogen 13 mg/dL (9-20); Calcium 7.8 mg/dL (8.4-10.2); Carbon Dioxide 19 mmol/L (22-32); Chloride 114 mmol/L (98-107); Estimated Glomerular Filt Rate > 60 mL/min (>60); Globulin 2.9 g/dL (1.7-4.1); Glucose 86 mg/dL (80-110); HEMOLYSIS < 15 (0-50); Phosphorous 2.2 mg/dL (2.3-3.7); Potassium 3.6 mmol/L (3.4-5.1); Sodium 142 mmol/L (137-145); Total Protein 6.4 g/dL (6.3-8.2)
[2021-09-28] MEDS: ENOXAPARIN 40 MG/0.4 ML SYRINGE SUBCUT (09:06)
[2021-09-28] MEDS: ASPIRIN 300 MG SUPP PR (09:06)
[2021-09-28] MEDS: LACTATED RINGERS 1,000 ML 84 ML IV (09:37)
--- NOTE | 2021-09-28 09:39 | PC.NURSE ---
Pt left unit for placement of PEG tube via bed w/OR nurse @[phone].
--- NOTE | 2021-09-28 09:48 | OT.IPNOTE ---
Checked on pt for OT treatment and pt out of the room as having peg tube surgery today.
--- NOTE | 2021-09-28 09:57 | PM.CN ---
History of Present Illness Consult details Date Patient Seen: 09/28/21 Time Patient Seen: 09:57 Chief complaint: LEFT ARM NUMBNESS LOST ABILITY TO SPEAK Reason for consult: dysphagia Requesting provider: J Carlos Jaramillo Narrative: Presented to hospital with stroke. residual dysphasia. This is his second stroke. Meds Home Medications and Allergies Home Medications Medication Instructions Recorded Confirmed Type aspirin 81 mg chewable tablet 81 mg PO DAILY 09/25/21 09/25/21 History Allergies Allergy/AdvReac Type Severity Reaction Status Date / Time No Known Drug Allergies Allergy Verified 09/25/21 20:03 Exam Vital Signs (past 8 hours): - 09/28/21 05:00 09/28/21 09:00 09/28/21 09:38 Temperature 98.1 F 98.6 F 99.2 F Pulse Rate 75 71 92 H Respiratory Rate 18 17 18 Blood Pressure 137/65 142/71 H 150/79 H Pulse Oximetry 96 95 98 Oxygen Delivery Method Room Air Oxygen Flow Rate 0 Const General: cooperative and comfortable Nutritional Appearance: average body habitus HENMT Head: normocephalic and atraumatic Face and sinus: normal facial exam Neck Neck: trachea midline Chest Chest: normal inspection of the chest Resp Effort & Inspection: normal respiratory effort Cardio Rate: regular rate Rhythm: regular rhythm GI Inspection: normal to inspection Skin General: no rashes or lesions noted Neuro General: patient alert and patient awake Cognition: normal cognition Speech: abnormal speech Extrem General: normal to inspection Psych Mental Status: mental status grossly normal Attitude: cooperative Judgment: judgment good Objective Labs Result Diagrams: 09/28/21 06:00 09/28/21 06:00 Labs: Laboratory Results - last 24 hr 09/28/21 09/28/21 06:00 06:00 WBC 8.0 RBC 3.99 L Hgb 12.3 L Hct 37.1 L MCV 92.8 MCH 30.7 MCHC 33.0 RDW 14.5 Plt Count 164 Neut % (Auto) 67.0 Lymph % (Auto) 16.1 L [place] % (Auto) 11.6 Eos % (Auto) 4.3 H Baso % (Auto) 1.0 Neut # (Auto) 5400 Lymph # (Auto) 1300 [place] # (Auto) 900 Eos # (Auto) 300 Baso # (Auto) 100 Sodium 142 Potassium 3.6 Chloride 114 H Carbon Dioxide 19 L BUN 13 Creatinine 0.76 Estimated GFR > 60 BUN/Creatinine Ratio 17.1 Glucose 86 Calcium 7.8 L Phosphorus 2.2 L Magnesium 2.0 Total Bilirubin 0.9 AST 50 ALT 53 H Alkaline Phosphatase 51 Total Protein 6.4 Albumin 3.5 Globulin 2.9 Albumin/Globulin Ratio 1.2 PFSH Comment: h/o stroke Social History household members: none Tobacco & Substance Use Smoking Status: Former smoker alcohol intake: never Assessment & Plan Assessment & Plan narrative: S/P stroke with aspiration risk Plan: PEG tube placement with MAC COVID-19 COVID-19 status: Negative Time Spent With Patient Critical Care time: I spent a total of [] minutes of critical care time on this patient's care today; this time is exclusive of procedural time.
--- NOTE | 2021-09-28 11:17 | SUR.OPER ---
Addendum entered by Yahaira Long R.N. 09/28/21 11:43: Lidocaine 1% from PEG Tube kit, 1.5mls was used. Original Note: Supine on padded Acute Care bed, head on pillow, arms padded and tucked at sides, legs uncrossed, tape over blanket over lower legs . Warm blankets placed. Patient interview completed by using Inpatient Rehab Writing pad that patient had with him.
--- NOTE | 2021-09-28 11:32 | PM.OP.EGD ---
Operative Date/Time/Diagnoses Date of procedure: 09/28/21 Time of procedure: 11:32 Pre-op diagnosis: CVA Post-op diagnosis: same Procedure & Clinicians Study performed: PEG tube placement Same procedure as scheduled: Yes Indications: CVA Surgeon: Dorothy Laboy Procedure Notes SCOAP/Timeout: Done Procedure in detail: Preop diagnosis: Dysphagia Postop diagnosis: Same Findings: Normal anatomy of the esophagus and stomach Procedure: Peg tube placement Anesthetic: ET tube intubation along with local Surgeon: Eugenie Laboy MD Procedure: Patient placed in a supine position. Prepped and draped in a sterile fashion to expose abdomen. Scope inserted into the esophagus advanced to the stomach and insufflation identified 5 the point on his abdomen most sufficient for PEG tube placement with palpation. Local anesthetic was injected in the prepped field. Small incision was created in the left upper abdomen and through the incision Angiocath was placed. Through the Angiocath we were able to feeding capture the blue wire that came with the kit. This was attached to the PEG tube itself as it exited the oral cavity. It was then pulled through the abdominal wall seating the PEG into position without complication. Position on the abdominal wall 3.5-4 cm on the tube. Plastic flange was seated at area of giving some looseness. Drain sponge was placed around that. And the PEG was matured to usable fashion. Patient was awakened extubated taken to recovery in a stable condition. Needle sponge count instrument counts were correct. Blood loss: 2 mL Specimen: None
--- NOTE | 2021-09-28 12:24 | SUR.PHASEI ---
Report called to Leni CAPONE. Updated on pt's status. Opportunity for questions given. Pt returning to room 205. Pt updated on plan of care and is agreeable.
--- NOTE | 2021-09-28 14:45 | ST.IPDYTX ---
Visit Care Team Role Provider Type Dorothy Laboy MD Other Providers Physician Specialty: General Surgery Address: [address] [place] [address], [id number] Email: Josseline Smith DO Emergency Provider Physician Referring Provider Specialty: Emergency Medicine Address: [address] [place] [address], [id number] Email: [email or web address] Rao Virgen MD Admit Provider Physician Attending Provider Specialty: Hospitalist Address: [address] [place] [address], [phone] Fax: Email: [email or web address] Dysphagia Treatment [employer] Dysphagia Treatment Start: 09/28/21 14:37 Freq: Status: Active Protocol: Document 09/28/21 14:39 ZS (Rec: 09/28/21 14:45 ZS [id number]) Dysphagia Treatment Session Time Visit Start Time 13:30 Visit Stop Time 14:00 Total Visit Minutes 30 Visit Information Visit Number 1 Setting Assessment Location Acute Care Visit Type Note Type Treatment Note Next Note Type Next Note Type Treatment Note Patient Information Identification Type Name,ID Wristband Subjective Observations Pt was seated upright in bed when [employer] arrived. He showed [employer] that a PEG tube had been placed for feeding and communicated via gestures and writing. He reported increased secretion control and volitional control of tongue. Did not complete PO trials at this time as pt continues to present with severely impaired strength and ROM that place him at high risk for aspiration. Treatment Treatment Activities Reviewed oral motor exercises provided in previous session. Practiced movement with oral structures. Discussed treatment plan and progress towards goals. Assessment Patient Response to Treatment Good Rehab Potential Good Assessment of Improvement Pt presents with severely impaired strength and ROM of oral structures that place him at high risk for aspiration. Improvement in volitional control of smile and pucker noted today. Pt is able to protrude tongue just between teeth, but not out of mouth. He demonstrated a pucker with the use of the swab to encourage pucker movement and was able to hold this position briefly. Pt to continue with oral motor exercises to increase strength, ROM, and coordination of oral musculature. Recommend pt remains NPO at this time as he is at high risk for aspiration. Will continue to monitor for assessment with PO trials as pt improves strength and ROM of oral structures. Diet Recommendations Recommendations Continue Current Diet Liquids Order Nothing by Mouth Diet Order NPO Medication Recommendations Not Recommended by Mouth Treatment Plan Therapy Recommendations Pt to continue with oral motor exercises to increase strength, ROM, and coordination of oral musculature. Recommend pt remains NPO at this time as he is at high risk for aspiration. Will continue to monitor for assessment with PO trials as pt improves strength and ROM of oral structures. Dysphagia Goals The pt will perform exercises to increase strength, coordination, and ROM of swallow musculature independently to reduce risk of aspiration and increase comfort with oral intake. The pt will safely tolerate least restrictive diet to meet his nutrition and hydration needs.
--- NOTE | 2021-09-28 16:15 | PM.PN.1 ---
Subjective Subjective Date Patient Seen: 09/28/21 Interval history: Patient with no new complants today. Went for PEG placement with general surgery. Exam Vital Signs (past 8 hours): - 09/28/21 09:00 09/28/21 09:38 09/28/21 11:35 Temperature 98.6 F 99.2 F 97.9 F Pulse Rate 71 92 H 72 Respiratory Rate 17 18 18 Blood Pressure 142/71 H 150/79 H 125/75 Pulse Oximetry 95 98 99 09/28/21 11:40 09/28/21 11:45 09/28/21 11:50 Temperature Pulse Rate 93 H 93 H 93 H Respiratory Rate 17 16 17 Blood Pressure 122/68 127/71 132/70 Pulse Oximetry 99 93 92 09/28/21 11:55 09/28/21 12:10 09/28/21 12:25 Temperature Pulse Rate 90 87 84 Respiratory Rate 17 19 15 Blood Pressure 139/76 137/84 141/72 H Pulse Oximetry 92 92 95 Oxygen Delivery Method Room Air Oxygen Flow Rate 15 Narrative Exam Narrative: GEN: no acute distress HEENT:moist mucous membranes, PERRL NECK: trachea midline, no JVD CV: Regular rate and rhythm without murmur PULM:clear bilaterally, no wheezes, rales, crackles ABD:bowel sounds normal, soft, non-tender, nondistended, no organomegaly EXT:: Non-tender, no edema NEURO:unable to speak, difficulty swallowing, otherwise CN 2-12 intact, sensation normal, upper and lower extremities with 5/5 strength. communicates well writing on a digital tablet. SKIN:? No rash, erythema Objective Labs Result Diagrams: 09/28/21 06:00 09/28/21 06:00 Labs: Laboratory Results - last 24 hr 09/28/21 09/28/21 06:00 06:00 WBC 8.0 RBC 3.99 L Hgb 12.3 L Hct 37.1 L MCV 92.8 MCH 30.7 MCHC 33.0 RDW 14.5 Plt Count 164 Neut % (Auto) 67.0 Lymph % (Auto) 16.1 L [place] % (Auto) 11.6 Eos % (Auto) 4.3 H Baso % (Auto) 1.0 Neut # (Auto) 5400 Lymph # (Auto) 1300 [place] # (Auto) 900 Eos # (Auto) 300 Baso # (Auto) 100 Sodium 142 Potassium 3.6 Chloride 114 H Carbon Dioxide 19 L BUN 13 Creatinine 0.76 Estimated GFR > 60 BUN/Creatinine Ratio 17.1 Glucose 86 Calcium 7.8 L Phosphorus 2.2 L Magnesium 2.0 Total Bilirubin 0.9 AST 50 ALT 53 H Alkaline Phosphatase 51 Total Protein 6.4 Albumin 3.5 Globulin 2.9 Albumin/Globulin Ratio 1.2 [facility] Social History household members: none Smoking Status: Former smoker alcohol intake: never Assessment & Plan Assessment & Plan narrative: Mr. Rogers is a 71M with PMH CVA, mechanical heart valve admitted for presumed CVA. 1. CVA, subacute to acute -patient presents days after start of symtpoms, outside of window for TPA -ct head with no acute process, cta head/neck shows L ICA 55% stenosis -ordered for [place] aspirin, add plavix and statin once patient can swallow or feeding tube is obtained. -consulted general surgery for PEG placement which was placed today. Can start using tomorrow. -ordered for MRI and ECHO, not be able to perform MRI given heart valve. Echocardiogram was unremarkable. -a1c 5.7% -keep on tele -appreciate dietary recommendations for tube feedings, which can begin tomorrow. discussed with patient and will defer NG tube at this time and begin feeds tomorrow. Will continue some d5 1/2 NS for now. 2. Elevated blood pressure -allowed for permissive HTN -once feeding access obtained can start antihypertensive therapy, though BP only mildly elevated today. 3. Paroxysmal Atrial fibrillation -rate controlled currently -ECHO showed some mildly reduced RV function, -will need to start anticoagulation once enteral feeds begin, and after PEG placement ideally. 4. Mechanical heart valve -continue aspirin -patient has heart valve. CODE: Full Proxy: Friend, Darryl Brush I have utilized all available resources to reconcile the patient's home medications Time Spent With Patient Critical Care time: I spent a total of [] minutes of critical care time on this patient's care today; this time is exclusive of procedural time.
[2021-09-28] MEDS: DEXTROSE 5%-0.45% NS 1,000 ML 100 ML IV (17:46)
[2021-09-29] VITALS (8 sets, daily range): BP systolic 124–137; BP diastolic 62–74; PULSE 73–98; RESP 18–20; TEMP 36.6–37.2; O2SAT 94–99
[2021-09-29] MEDS: DEXTROSE 5%-0.45% NS 1,000 ML 100 ML IV (04:25)
[2021-09-29 07:34] LABS: Alanine Aminotransferase 48 IU/L (<50); Albumin 3.5 g/dL (3.5-5.0); Albumin Globulin Ratio 1.3 (1.0-2.8); Alkaline Phosphatase 50 U/L (38-126); Aspartate Aminotransferase 39 IU/L (17-59); BUN Creatinine Ratio 16.9 (6-22); Bilirubin Total 0.8 mg/dL (0.2-1.3); Blood Urea Nitrogen 12 mg/dL (9-20); Carbon Dioxide 25 mmol/L (22-32); Chloride 109 mmol/L (98-107); Estimated Glomerular Filt Rate > 60 mL/min (>60); Globulin 2.8 g/dL (1.7-4.1); Glucose 134 mg/dL (80-110); HEMOLYSIS < 15 (0-50); Potassium 3.5 mmol/L (3.4-5.1); Sodium 138 mmol/L (137-145); Total Protein 6.3 g/dL (6.3-8.2)
[2021-09-29 07:42] LABS: Add Manual Diff / Slide Review NO; Basophils Absolute Auto 0 /uL (0-100); Basophils Percent Auto 0.3 % (0-2); Eosinophils Absolute Auto 0 /uL (0-450); Eosinophils Percent Auto 0.4 % (2-4); Hematocrit 36.6 % (41-53); Hemoglobin 12.2 g/dL (13.5-17.5); Lymphocytes Absolute Auto 1200 /uL (1100-4500); Lymphocytes Percent Auto 9.4 % (25-40); Mean Corpuscular HGB Conc 33.3 % (30-36); Mean Corpuscular Hemoglobin 30.8 PG (26-34); Mean Corpuscular Volume 92.4 fL (80-100); Monocytes Absolute Auto 1600 /uL (0-900); Monocytes Percent Auto 12.2 % (3-14); Neutrophils Absolute Auto 10100 /uL (1500-7000); Neutrophils Percent Auto 77.7 % (50-75); Platelet Count 178 X10^3/uL (150-400); Red Blood Cell Count 3.96 X10^6/uL (4.5-5.9); Red Cell Distribution Width 14.9 % (11.6-14.8)
[2021-09-29] MEDS: POTASSIUM PHOSPHATE 15 MMOL in SODIUM CHLORIDE 0.9% 250 ML 127.5 MMOL IV (10:41)
[2021-09-29] MEDS: ASPIRIN 81 MG CHEW TAB PO (10:42)
[2021-09-29] MEDS: METOPROLOL IR 25 MG TABLET PO ×2 (11:14→17:41)
--- NOTE | 2021-09-29 11:25 | CM.DPC ---
Addendum entered by CHAN Eastman 09/29/21 14:51: ADD: Return call from [facility] Pharmacist Jessica stating prior to d/c they will need to determine will pt's PCP be following Provider after discharge? [facility] will also need Provider to mention the following in MD note or d/c summary for Medicare to cover cost of PEG/enteral feedings: Enteral Nutrition via PEG tube needed due to functional impairment of GI tract secondary to CVA and PEG tube needed likely greater than 90 days. BF Original Note: DCP Cont: Per MD, pt's PEG placement yesterday with Dr. Laboy seems to go well and feedings to be initiated likely today and SW looked at Calculation Reviewer note from 09/27/21 with recommendations for PEG feedings as well. MD and RN will review towards placing feeding orders for pharmacy to begin soon. Pt has continued to state he wants to d/c home with his friends support. SW contacted w/e Pharmacist at [facility] and confirmed they manage PEG and Jevity feedings with their RN visit once for teaching and then their director agricultural services follows for ordering the formula and delivery but teaching would need to happen at the hospital prior to pt discharge back to [facility]. [facility] may not have confirmation of pt's Medicare coverage until Friday (today is Sat) to confirm PEG management/feedings covered by medicare. KIANA Diaz kindly faxed initial referral, PEG placement note, dietary feeding recommendations to [facility] to review. SW updated RN and will follow for pts feedings to likely be started today to confirm pt can tolerate. [facility] confirmed they have ST for [facility] and would be willing to review if HH needed at d/c, no referral made yet. Plan: SW to follow closely for further OT/ST and [facility] review towards confirming safe plan of home to [facility] via friend POV with new PEG placement and feedings and ST. CHAN Eastman
--- NOTE | 2021-09-29 11:33 | CM.DPNOTE ---
Faxed referral packet to [facility] per Myriam and receive fax conf. Emily Kuo CM Assist.
--- NOTE | 2021-09-29 12:59 | OT.IP.TRT ---
Current Diagnoses Cerebral infarction, unspecified (09/25/21) Surgery Performed Operation Date: 09/28/21 15:15 Actual Procedures p PEG Tube Insertion - Dorothy Laboy MD Occupational Therapy Treatment Note M2 OT-IP Current Condition Start: 09/26/21 14:23 Freq: Status: Active Protocol: Document 09/26/21 14:23 [facility] (Rec: 09/26/21 14:45 [facility] [id number]) Occupational Therapy Current Condition Current Condition Evaluation Date 09/26/21 Treatment Diagnosis CVA, decreased coordination Diagnosis Onset Date 09/25/21 M3 OT- IP Subjective and Pain Start: 09/26/21 14:23 Freq: Status: Active Protocol: Document 09/27/21 14:34 [facility] (Rec: 09/27/21 14:35 [facility] [id number]) OT- Subjective Occupational Therapy Visit Type Type Treatment Note Visit Start Time 11:44 Visit Stop Time 12:45 Total Visit Minutes 61 Occupational Therapy Visit Comments Patient Comments Able to do [place] making Part b. Patient/Caregiver Goals To go home OT Pain Assessment Pain When Pain Assessed At Rest Pain Present Pain Present Denied Pain M4 OT- IP ADL's Start: 09/26/21 14:23 Freq: Status: Active Protocol: Document 09/29/21 12:15 [facility] (Rec: 09/29/21 13:29 [facility] [id number]) OT [id number] Comments OT Self-Feeding Comments Pt still NPO and Peg tube was placed yesterday. OT ADL-Grooming Comments OT Grooming Comments Pt able to use his left hand effectively today to be able to put a hair tie into his hair for a pony tail, much improved with his ability to use left hand to assist. OT ADL-Oral Care Comments Oral Care Comments NPO M5 OT- IP IADL's Start: 09/26/21 14:23 Freq: Status: Active Protocol: Document 09/26/21 14:23 [facility] (Rec: 09/26/21 14:45 [facility] [id number]) OT-Instrumental Activities of Daily Living Home Safety Awareness Home Safety Comments to further assess M6 OT- IP Functional Cognition Start: 09/26/21 14:23 Freq: Status: Active Protocol: Document 09/29/21 12:15 [facility] (Rec: 09/29/21 13:29 [facility] [id number]) Cognitive Factors Limiting Selfcare Function Cognitive Ability Level of Alertness Alert Patient Orientation Name,Age,Birthday,Month,Date, Year,Day of Week,Place, Situation Attention Span Ability Capable of Focused Attention, Capable of Sustained Attention Ability to Follow Commands Able to Follow Multi-Step Commands Memory Description No Deficits Noted Problem Solving Ability Unable to Identify Errors, Needs Assist to Identify Solutions Cognitive Comments Cognitive Assessment Comments Today much improved with [place] Making Part B and scored 75 seconds which implies normal but not perfect for visual attention, speed of processing , task switching, mental flexibility, and execute functioning. Pt feel that he is thinking much better but at times a little slower. M8 OT- IP Objective Assessments Start: 09/26/21 14:23 Freq: Status: Active Protocol: Document 09/26/21 14:23 [facility] (Rec: 09/26/21 14:45 [facility] [id number]) OT Gross Range of Motion Upper Extremity Range of Motion Assessment Within Functional Limits OT Strength Upper Extremity Strength Assessment Within Functional Limits OT- Coordination Assessment Upper Extremity Finger to Nose Test Within Functional Limits Finger Tapping Test Within Functional Limits Comments Coordination Comments 9 hole peg test 50% for age at 25sec for right hand and left hand 58 seconds OT-Muscle Tone Assessment Muscle Tone WNL Yes M9 OT- IP Assessment and Plan Start: 09/26/21 14:23 Freq: Status: Active Protocol: Document 09/29/21 12:15 [facility] (Rec: 09/29/21 13:29 [facility] [id number]) OT Summary Assessment and Plan Potential Rehabilitation Potential Good Analytic Complexity at Evaluation Moderate Summary OT Impairments Coordination,Bathing Progress Towards Goals Progressing Toward Goals Assessment Summary Pt much improved on the [place] Making Part B and implying his higher cognitive skills are better today. Able to give pt list to work on left hand coordination. Pt able to smile at times now and able to make some sounds at this time . Pt is insistent on going home and has a friend who states will stay with him initially. 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 Goals Shower Transfer Goal Independent OT-Other Goals All goals with use incorporation of left hand for efficient and smooth movements. Pt to be able to do peg tub feeding on his own with good safety. Days to Meet Goals 10 Frequency of Treatment Frequency Of Treatment Once a Day Treatment Plan OT Treatment Plan ADL Training,Functional Cognition Training,Functional Mobility,Patient/Family Education,Discharge Planning Other Treatment Recommendations and Next shower /slums Treatment Focus Discharge Recommendations OT Discharge Recommendations Home with 09/12 Assist Available,Outpatient PT Transportation Needs at Discharge Private Vehicle
--- NOTE | 2021-09-29 15:37 | P.PN_ITS ---
Subjective Subjective Date Patient Seen: 09/29/21 Time Patient Seen: 08:00 Interval history: He has a sore throat after PEG placement yesterday. Otherwise he feels well. He does feel is movement of his mouth, tongue, and swallow ability is slowly improving. Exam Vital Signs (past 8 hours): - 09/29/21 08:15 09/29/21 10:00 09/29/21 13:06 Temperature 97.9 F 97.9 F Pulse Rate 79 73 Respiratory Rate 18 18 Blood Pressure 133/67 135/62 Pulse Oximetry 97 95 99 Oxygen Delivery Method Room Air Oxygen Flow Rate 0 Narrative Exam Narrative: GEN: no acute distress ABD:PEG in place, incision without purulence or erythema NEURO:unable to speak, difficulty swallowing, otherwise CN 2-12 intact, sensation normal, upper and lower extremities with 5/5 strength. communicates well writing on a digital tablet. Objective Labs Result Diagrams: 09/29/21 06:59 09/29/21 06:59 Labs: Laboratory Results - last 24 hr 09/29/21 09/29/21 06:59 06:59 WBC 13.0 H D RBC 3.96 L Hgb 12.2 L Hct 36.6 L MCV 92.4 MCH 30.8 MCHC 33.3 RDW 14.9 H Plt Count 178 Neut % (Auto) 77.7 H Lymph % (Auto) 9.4 L [place] % (Auto) 12.2 Eos % (Auto) 0.4 L Baso % (Auto) 0.3 Neut # (Auto) 25099 H Lymph # (Auto) 1200 [place] # (Auto) 1600 H Eos # (Auto) 0 Baso # (Auto) 0 Sodium 138 Potassium 3.5 Chloride 109 H Carbon Dioxide 25 BUN 12 Creatinine 0.71 Estimated GFR > 60 BUN/Creatinine Ratio 16.9 Glucose 134 H Calcium 8.0 L Phosphorus 2.0 L Magnesium 2.0 Total Bilirubin 0.8 AST 39 ALT 48 Alkaline Phosphatase 50 Total Protein 6.3 Albumin 3.5 Globulin 2.8 Albumin/Globulin Ratio 1.3 [facility] Social History household members: none Smoking Status: Former smoker alcohol intake: never Assessment & Plan Assessment & Plan narrative: Mr. Rogers is a 71M with H CVA, mechanical heart valve admitted for presumed CVA. 1. CVA, subacute to acute -patient presents days after start of symtpoms, outside of window for TPA -ct head with no acute process, cta head/neck shows L ICA 55% stenosis -ordered for [place] aspirin, add plavix and statin once patient can swallow or feeding tube is obtained. -consulted general surgery for PEG placement, start tube feeds -ordered for MRI and ECHO, not be able to perform MRI given heart valve. Echocardiogram was unremarkable. -a1c 5.7% -appreciate dietary recommendations for tube feedings 2. Elevated blood pressure -allowed for permissive HTN -once feeding access obtained can start antihypertensive therapy, though BP only mildly elevated today. 3. Paroxysmal Atrial fibrillation -rate controlled currently -ECHO showed some mildly reduced RV function, -will need to consider starting anticoagulation, difficult to determine timing given no ability to get MRI 4. Mechanical heart valve -continue aspirin -patient has heart valve. Time Spent With Patient Critical Care time: I spent a total of [] minutes of critical care time on this patient's care today; this time is exclusive of procedural time.
[2021-09-30] VITALS (8 sets, daily range): BP systolic 149–163; BP diastolic 73–88; PULSE 61–98; RESP 16–18; TEMP 36–38.1; O2SAT 95–98
[2021-09-30] MEDS: METOPROLOL IR 25 MG TABLET PO ×5 (00:11→23:11)
[2021-09-30] MEDS: DEXTROSE 5%-0.45% NS 1,000 ML 100 ML IV ×2 (02:03→12:50)
[2021-09-30 07:13] LABS: Albumin 3.5 g/dL (3.5-5.0); Blood Urea Nitrogen 10 mg/dL (9-20); Calcium 7.9 mg/dL (8.4-10.2); Carbon Dioxide 28 mmol/L (22-32); Chloride 107 mmol/L (98-107); Estimated Glomerular Filt Rate > 60 mL/min (>60); Glucose 117 mg/dL (80-110); HEMOLYSIS < 15 (0-50); Phosphorous 2.2 mg/dL (2.3-3.7); Potassium 3.1 mmol/L (3.4-5.1); Sodium 139 mmol/L (137-145)
[2021-09-30] MEDS: ASPIRIN 81 MG CHEW TAB PO (09:24)
--- NOTE | 2021-09-30 12:16 | CM.DPC ---
DCP/continued: Reviewed chart. Patient recenlty had PEG tube placed secondary to CVA. Home health initiated for PEG tube feeding and home health for ST. [employer]MENT MECHANIC met with patient and he currently reports that he does not have PCP? Therefore, surgeon/Dr. Laboy would need to follow HH and PEG tube orders. Patient reports that he does not have a provider because he has never needed one. Patient would benefit from PCP for follow up with medications and management of PEG tube feedings. Patient agreeable for OFFICE EQUIPMENT MECHANIC to call Clinic on [facility] tomorrow 10-01-21 to see if he can get established. In the meantime, patient remains hospitalized because tube feeds have required adjustments. Dietary and ST to see in AM to make recommendations. JAROD
[2021-09-30] MEDS: POTASSIUM PHOSPHATE 15 MMOL in SODIUM CHLORIDE 0.9% 250 ML 127.5 MMOL IV (12:50)
[2021-09-30] MEDS: POTASSIUM CHLORIDE 20 MEQ TAB 40 MEQ PO ×2 (12:51→18:43)
--- NOTE | 2021-09-30 16:11 | PM.PN.1 ---
Subjective Subjective Date Patient Seen: 09/30/21 Time Patient Seen: 08:00 Interval history: Started tube feeds yesterday. He feels distended and lack of appetite. Further bolus have been intermittently held based on symptoms Exam Vital Signs (past 8 hours): - 09/30/21 11:07 09/30/21 12:00 Temperature 98.1 F Pulse Rate 61 Respiratory Rate 17 Blood Pressure 151/82 H Pulse Oximetry 97 96 Oxygen Delivery Method Room Air Oxygen Flow Rate 0 Narrative Exam Narrative: GEN: no acute distress ABD:PEG in place, incision without purulence or erythema NEURO:unable to speak, difficulty swallowing, otherwise CN 2-12 intact, sensation normal, upper and lower extremities with 5/5 strength. communicates well writing on a digital tablet. Objective Labs Result Diagrams: 09/29/21 06:59 09/30/21 06:12 Labs: Laboratory Results - last 24 hr 09/30/21 06:12 Sodium 139 Potassium 3.1 L Chloride 107 Carbon Dioxide 28 BUN 10 Creatinine 0.77 Estimated GFR > 60 BUN/Creatinine Ratio 13.0 Glucose 117 H Calcium 7.9 L Phosphorus 2.2 L Albumin 3.5 PFSH Social History household members: none Smoking Status: Former smoker alcohol intake: never Assessment & Plan Assessment & Plan narrative: Mr. Rogers is a 71M with PMH CVA, mechanical heart valve admitted for presumed CVA. 1. CVA, subacute to acute -patient presents days after start of symtpoms, outside of window for TPA -ct head with no acute process, cta head/neck shows L ICA 55% stenosis -ordered for [place] aspirin, add plavix and statin once patient can swallow or feeding tube is obtained. -consulted general surgery for PEG placement, start tube feeds -ordered for MRI and ECHO, not be able to perform MRI given heart valve. Echocardiogram was unremarkable. -a1c 5.7% -appreciate dietary recommendations for tube feedings -check electrolytes as tube feeds have not started 2. Elevated blood pressure -allowed for permissive HTN -once feeding access obtained can start antihypertensive therapy, though BP only mildly elevated today. 3. Paroxysmal Atrial fibrillation -rate controlled currently -ECHO showed some mildly reduced RV function, -will need to consider starting anticoagulation, difficult to determine timing given no ability to get MRI 4. Mechanical heart valve -continue aspirin -patient has heart valve. Time Spent With Patient Critical Care time: I spent a total of [] minutes of critical care time on this patient's care today; this time is exclusive of procedural time.
--- NOTE | 2021-09-30 16:27 | PC.NURSE ---
Addendum entered by Dara Ewing R.N. 09/30/21 17:27: Pt tolerated the 100mL of tube feeding over 1hr, but after flushing the line, he wrote on his communication board that he could feel the water in his throat, pt claims he does not feel nauseous. Will continue to monitor. Original Note: This am, pt refused morning tube feeding saying he still felt gassy, bloated and not hungry after the frequency and speed of yesterday's feeds. He was willing to take free water with his medication administrations though. Dr. Virgen aware and told staff to administer whatever pt would tolerate today with the assumption that the dietitian will follow up with him tomorrow. Pt continued to refuse tube feeding until about 1630 this afternoon when he said he would be willing to try a small amount of tube feeding, slowly. Pump set to deliver 100mL/1hr. Will reassess pt status after administration of this feeding.
--- NOTE | 2021-09-30 19:54 | PC.NURSE ---
Addendum entered by Aurora Milligan R.N. 10/01/21 03:23: Pt refusing feeding because it makes him feel full, gassy and according to him the feeding feels like is on his throat. Pt is having difficulty managing his own secretions and will need a suction machine at home. Original Note: P:t seatin on his recliner, ambulated to the bathroom to urinate. pt refusing tube feeding at this time, states he isn't hungry. pt is concerned that what is being order as far as tube feeding is too much, he states it makes him burp and gassy. I explained to patient that the tube feeding will be is only nutrition when he gets home.
[2021-10-01] VITALS (7 sets, daily range): BP systolic 122–152; BP diastolic 73–83; PULSE 67–92; RESP 14–20; TEMP 36.7–37.1; O2SAT 92–96
[2021-10-01] MEDS: DEXTROSE 5%-0.45% NS 1,000 ML 100 ML IV ×2 (00:56→11:00)
[2021-10-01 06:18] LABS: BUN Creatinine Ratio 9.6 (6-22); Blood Urea Nitrogen 7 mg/dL (9-20); Calcium 8.3 mg/dL (8.4-10.2); Carbon Dioxide 26 mmol/L (22-32); Chloride 109 mmol/L (98-107); Estimated Glomerular Filt Rate > 60 mL/min (>60); Glucose 119 mg/dL (80-110); HEMOLYSIS < 15 (0-50); Potassium 3.4 mmol/L (3.4-5.1); Sodium 139 mmol/L (137-145)
[2021-10-01] MEDS: METOPROLOL IR 25 MG TABLET PO ×2 (06:31→11:01)
--- NOTE | 2021-10-01 09:33 | DIET.PN1 ---
Addendum entered by Shameka Callaway 10/01/21 11:16: Pt tolerated one hour continuous feed of 70mL, will wait one hour then do another 70mL. If pt tolerates without s/sx bloating, RD will write home TF plan with guidelines to increase volume and frequency of bolus feeds to goal over a few days. Preference for pt to stay hospitalized until lunchtime tomorrow to ensure bolus tolerance and patient teaching. Original Note: Dietary Progress Note Assessment: 71y M s/p CVA c PEG tube placement on 09/28 not tolerating TF at goal bolus rate secondary to bloating and feeling like formula is filling his stomach. Pts feeding goal remains bolus feeds of 237mL Jevity 1.2 formula 7x/d c 250mL free water flushes q4h providing 1356mL free water, 2016 kcals, 93g PRO, 285g CHO, 66g fat, free water flushes provide 1.5L with total feed plus flush volume of 2856mL (35mL/kg). When RD visited this am, pts tube feed stopped. RD spoke c pt who is willing to trial one hour continuous feed of 70mL with RD and nursing checking in after feeding to assess for tolerance and if pt willing to continue on continuous feeds. Pt somewhat anxious to restart feeding, RD will closely communicate c pt and nursing team today and until d/c. Pts last BM on 09/29, not on narcotic pain meds. Ht: 182.88 cm Wt: 80.739 kg BMI: 24.1 Last BM: 09/29/21 (09/29/21 18:31) MNA: Regan Score: 20 Diet: 09/25/21 18:46 NPO Diet Diet Modifications: NPO Type: Strict 09/29/21 Lunch Tube Feeding Diet Diet Modifications: TF Supplement type: Jevity 1.2 tonie continuous trial 70mL/h Nutrition Type of Feeding Tube PEG 09/29/21 16:00 Labs: RBC 3.96 X10^6/uL (4.5-5.9) L 09/29/21 06:59 Hgb 12.2 g/dL (13.5-17.5) L 09/29/21 06:59 Hct 36.6 % (41-53) L 09/29/21 06:59 Creatinine 0.73 mg/dL (0.66-1.25) 10/01/21 05:48 Hemoglobin A1c 5.7 % (4.0-6.0) 09/26/21 04:15 Nutrition Diagnosis: inadequate enteral nutrition infusion r/t feeding intolerance aeb pt feeling bloating and like EN overfilling stomach, TF stopped intermittently x2d. Interventions: 1. Recc slowly advancing TF to goal. Current plan is continuous feeding via pump to PEG at 70mL/h, stopping after first hour to assess tolerance and continuing based on tolerance, slow transition to bolus feeds. EER: 2016kcals (25kcal/kg per BMI), 80-85g PRO (1-1.1g/kg per elder, renal fxn WNL) Monitoring/Evaluations: following closely for tolerance, modified feeding plan Electronically Signed by: Shameka Callaway 10/01/21 09:33 Clinical Dietitian [address] [address]
[2021-10-01] MEDS: ENOXAPARIN 40 MG/0.4 ML SYRINGE SUBCUT (09:41)
[2021-10-01] MEDS: ASPIRIN 81 MG CHEW TAB PO (09:42)
[2021-10-01] MEDS: POTASSIUM CHLORIDE 20 MEQ/15 ML UDC 40 MEQ PO (11:01)
--- NOTE | 2021-10-01 12:43 | OT.IPNOTE ---
Pt getting a tube feeding when OT entered. Pt writes that he is walking and performing his ADLs without difficulty and declined activity on this date. Will continue to follow.
--- NOTE | 2021-10-01 13:11 | SLP.IPNOTE ---
Attempted to see pt for treatment x2. Spoke with pt briefly while he was with Nsg and Dietitian RE importance of remaining upright during and after tube feeding to reduce risk of reflux and aspiration. Pt verbalized agreement in writing. He also reported good understanding and practice of oral motor exercises that were recommended last week. During 2nd attempt to see him, his was present and the couple were coordinating home care via phone. Will try again to see the pt as able.
--- NOTE | 2021-10-01 14:53 | CM.DPNOTE ---
Faxed referral packet to [facility] and received fax conf. Emily Kuo CM Assist.
--- NOTE | 2021-10-01 15:03 | P.PN_ITS ---
Subjective Subjective Date Patient Seen: 10/01/21 Interval history: THIS IS A VERY PLEASANT 71-YEAR-OLD MALE WITH AN UNFORTUNATE RECENT CVA. HE IS APHASIC AND COMMUNICATE MOSTLY BY WRITING CAME TO THE HOSPITAL WITH DIFFICULTY SWALLOWING NOW HAS A PEG TUBE IN PLACE. STARTED ON TUBE FEEDING TODAY SPOKE TO PATIENT WITH HIS AT BEDSIDE FEELING MUCH BETTER NO REPORT OF NAUSEA OR VOMITING NO CHEST PAIN NO SHORTNESS OF BREATH. QUESTIONS AND CONCERNS ADDRESSED Exam Vital Signs (past 8 hours): - 10/01/21 08:31 10/01/21 09:35 10/01/21 13:37 Temperature 98.8 F 98.4 F Pulse Rate 71 92 H Respiratory Rate 19 20 Blood Pressure 141/73 H 122/77 Pulse Oximetry 93 94 96 Oxygen Delivery Method Room Air Oxygen Flow Rate 0 Narrative Exam Narrative: NO ACUTE DISTRESS. PATIENT IS ALERT ORIENTED X3. APHASIC. HEAD ATRAUMATIC NORMOCEPHALIC NECK : SUPPLE WITHOUT ADENOPATHY NO CAROTID BRUITS EYE: EOMI, PERRLA, NORMAL CONJUNCTIVA; NO JAUNDICE CHEST: REGULAR RATE. NO RUBS. PMI IS NON DISPLACED. NO MURMURS; NORMAL S1- S2 PULMONARY: DECREASED BS OVER THE BASES. MILD BIBASILAR CRACKLES NOTED; NO INCREASED DULLNESS TO PERCUSSION ABDOMEN: PEG TUBE IN PLACE. NO SIGN OF INFECTION AT THE SITE.SOFT. NONTENDER. NONDISTENDED. BOWEL SOUNDS ARE PRESENT IN ALL 4 QUADRANTS. EXTREMITIES: TRACE BILATERAL LOWER EXTREMITY EDEMA.. NO CYANOSIS CLUBBING NOTED. SENSATION INTACT TO ALL EXTREMITIES NEURO: CRANIAL NERVES 2-12 GROSSLY INTACT. NO FOCAL NEUROLOGICAL DEFICIT NOTED. MSK: NORMAL RANGE OF MOTION FOR AGE. NO JOINT EFFUSION. SKIN: NORMAL FOR ETHNICITY; NO ECCHYMOSIS. NO LESION. GOOD TURGOR.; NO RASHES : NORMAL EXTERNAL GENITALIA. PSYCH : APPROPRIATE MOOD AND AFFECT. ALERT AWAKE ORIENTED X3 Objective Labs Result Diagrams: 09/29/21 06:59 10/01/21 05:48 Labs: Laboratory Results - last 24 hr 10/01/21 10/01/21 05:48 05:48 Sodium 139 Potassium 3.4 Chloride 109 H Carbon Dioxide 26 BUN 7 L Creatinine 0.73 Estimated GFR > 60 BUN/Creatinine Ratio 9.6 Glucose 119 H Calcium 8.3 L Magnesium 2.0 PFSH Social History household members: none Smoking Status: Former smoker alcohol intake: never Assessment & Plan Assessment & Plan narrative: IMPRESSION ACUTE CVA. ON ASPIRIN, STATIN, PLAVIX APHASIA DUE TO ACUTE CVA. . STATUS POST PEG PLACEMENT ANEMIA CHRONIC DISEASE. STABLE HEMOGLOBIN REACTIVE HYPERGLYCEMIA MECHANICAL HEART VALVE PER HISTORY. LIKELY AORTIC VALVE PHYSICAL DEBILITY/ DECONDITIONING PLAN PATIENT STARTED ON TUBE FEEDING APPEARS TO BE TOLERATING WELL ASSISTANCE FROM SPEECH AND DIETITIAN TEAM GREATLY APPRECIATED NURSING STAFF TO MAINTAIN STRICT ASPIRATION PRECAUTIONS HEAD OF HER BED INTUBATED AT ALL TIMES ABOVE 35 DEGREE CHECK RESIDUALS PER HOSPITAL PROTOCOL HOLD FEEDING IF INDICATED PER RESIDUAL STARTED ON ASPIRIN WELL METOPROLOL ON ADMISSION WILL ADD PLAVIX AND STATIN TODAY. MONITOR CLOSELY FOR ANY SIGN OF BLEEDING WHILE ON DUAL ANTI-PLATELET THERAPY STRICT BLOOD PRESSURE CONTROL STRICT BLOOD SUGAR CONTROL WELL MAINTAIN FALL PRECAUTIONS AT ALL TIME WELL PROVIDE ASSISTANCE WITH ALL ADL NURSING TO ENCOURAGE PATIENT TO USE INCENTIVE SPIROMETRY DEVICE WHILE AWAKE ADDITIONAL MANAGEMENT PER CLINICAL COURSE LIKELY, WILL BE DISCHARGED IN NEXT 24 HOURS IF CLINICALLY STABLE GILDA IS Time Spent With Patient Critical Care time: I spent a total of [] minutes of critical care time on this patient's care t santos; this time is exclusive of procedural time.
--- NOTE | 2021-10-01 16:11 | CM.DPC ---
DCP/continued: Reviewed chart. Per provider in AM rounds patient not medically stable for discharge today. Per dietary/Shameka we are still monitoring and adjusting PEG tube feeding. FITTER PLACER spoke with Matt at [facility] and he reports that they will be at the hospital tomorrow 10-02 around 11:00AM to bring PEG tube supplies and nutrition. Patient hopeful that he can catch the 2:00pm ferry to return home tomorrow. Patient returning to [facility]. In addition, FITTER PLACER asked [facility] to check on whether or not we could get patient appointment at [facility]. Luckily, appointment made for patient on 10-05-21 at 10:00AM. Patient to be provided with appointment information upon d/c. Also arranged HH through [place] for ST and nursing. Faxed clinical, order, and f2f to Quentin at [facility]. P: Anticipate home with [facility] for supplies and home health through [facility]. CHAN Lopes
--- NOTE | 2021-10-01 17:48 | DIET.CONS ---
Addendum entered by Shameka Callaway 10/01/21 18:12: faxed feeding plan to Matt at [facility] and spoke c him on phone. Original Note: Dietary Consultation Note Admission Date: 09/25/2021 20:00 Pt tolerated continuous TF 70mL one hour on, one hour off, all day with no residuals and no pain per pt. Pt hesitant to increase rate today, will continue this pattern through the night. Pt receiving D5 to fill fluid gaps per hospitalist. Plan to transition to gravity feeds in morning as follows- 0800: 70mL; 1000: 120mL; 1200: 180mL with faster progression as tolerated. Pt plans to gravity feed at home and walk around immediately after to avoid feeding while sitting in bed to reduce risk of aspiration and he feels this will help him with his gut motility. Providing d/c bolus schedule. Pt may not be at goal bolus rate upon d/c, pt has strict instructions to contact RD, PCP, infusion company if unable to tolerate goal bolus within 2d. Pt has first PCP visit on October 05 (3d from d/c). Home Tube Feeding General Information: All tube feeding formulas, like milk, will support the growth of germs. Therefore handle all formulas as cleanly as possible and keep open formula in the refrigerator. Most people require additional water. If you are thirsty take extra fluid, either through the tube or, if able, by drinking it. Formulas with fiber should be given at room temperature and generally room temperature formulas are more comfortable. Formula should be administered slowly with maximum: 1) for bolus feedings 360ml (1 ? cups) over ? hour (Bolus feedings are administered with a syringe of by gravity drip) Keep head up and body at least 60 degrees upright during feeding and for about a ? hour after the feeding. If you feel uncomfortably full, slow or stop feeding temporarily. Estimated Daily Nutritional Needs for maintenance Calories: 2016 tonie @ 25cal/kg Protein: 93 grams @ 1.1g/kg Water: 2856 @ 35ml/kg Type & Amount of Tube Feeding recommended: Jevity 1.2 (or similar fiber containing formula that provides 1.2 calories per ml) Total daily: Bolus 237 ml w/ 60ml flush before and after each feed 7 x/day (8am, 10am, noon, 2pm, 4pm, 6pm, 8pm) Approximately 7 cans per day bolus. Extra water: additional 180mL free water 4x/d (9am, 1pm, 5pm, 9pm) Rinse tube before/after each feeding. Provides: Calories: 2016 kcal Protein: 93 g Electronically Signed by: Shameka Callaway 10/01/21 17:[address] Diet[address] [address]
[2021-10-01] MEDS: METOPROLOL IR 25 MG TABLET TUBE ×2 (18:57→23:34)
[2021-10-01] MEDS: ATORVASTATIN 20 MG TABLET 40 MG TUBE (23:34)
--- NOTE | 2021-10-02 01:11 | PC.NURSE ---
Addendum entered by Aurora Milligan R.N. 10/02/21 04:18: around 0400 am pt is requesting to get a break from tube feeding, stating his stomach feels full. Pt educated that this is the only way he is getting nutrition since he's not even getting IVF. Pt notted and said he understand. Addendum entered by Aurora Milligan R.N. 10/02/21 03:48: Pt had been refusing his iv fluids, stated he didn't want to be tied to two different machines tube feeding and iv Pole'. Original Note: Pt has been tolerating his feeding so far with Jevity 1.2, 70 ml/hour on and one hour off. So far minimal residual with less than 15 m. No bloating/nausea but does c/o hiccups.
[2021-10-02 04:15] VITALS: BP 138/76; PULSE 67; RESP 18; TEMP 37; O2SAT 95
[2021-10-02 05:13] LABS: HEMOLYSIS < 15 (0-50); Phosphorous 3.9 mg/dL (2.3-3.7); Potassium 3.5 mmol/L (3.4-5.1)
[2021-10-02] MEDS: METOPROLOL IR 25 MG TABLET TUBE ×2 (05:54→11:46)
[2021-10-02 07:00] VITALS: BP 117/69; PULSE 64; RESP 17; TEMP 36.8; O2SAT 92; O2SAT 94
--- NOTE | 2021-10-02 08:35 | PM.DS.1 ---
History of Present Illness History of Present Illness Date Patient Seen: 10/02/21 Chief complaint: LEFT ARM NUMBNESS LOST ABILITY TO SPEAK Narrative: History of Present Illness Date Patient Seen: 09/25/21 Time Patient Seen: 23:00 Chief complaint: LEFT ARM NUMBNESS LOST ABILITY TO SPEAK Narrative: Mr. Rogers is a 71M with H mechanical cardiac valve, CVA who presents with inability to swallow and speak. He takes aspirin but no anticoagulation He notes that he has felt abnormal for 3 days. He initially had some left handed nubmness and weakness that has now resolved. He developed inability to speak and difficulty to swallow even his own secretions. Because of this he presented to the hospital . he has no headache, vision changes, extremity weakness, chest pain, shortness of breath, nausea, vomiting. In the ED workup was done, vitals notable for elevated blood pressure 194/86. Initial NIH was 7. Labs notable for WBC 9.7, hgb 14.9, plts 234, creatinine 1.00. INR 1.1. CK 613, trop 0.012. CT head showed no acute process. CTA shows approximately 55% left internal carotid stenosis. EKG showed atrial fibrillation. He was ordered for rectal aspirin and admitted for further evaluation. Social history: occassional alcohol use Family history: denies history of CVA Discharge Providers Provider Date of admission: 09/25/21 20:00 Discharge Date: 10/02/21 Consults: 09/25/21 19:15 Consult to Speech Therapy Evaluate & Treat Comment: Physician Instructions: Evaluate and treat 09/25/21 20:52 Consult to Discharge Planning Routine Comment: Consult to Occupational Therapy Evaluate & Treat Comment: Physician Instructions: Evaluate and treat Consult to Physical Therapy Evaluate & Treat Comment: Physician Instructions: Evaluate and Treat Consult to Speech Therapy Evaluate & Treat Comment: Physician Instructions: Evaluate and treat 09/27/21 10:37 Consult to General Surgery Routine Comment: Consulting Provider: Dorothy Laboy Reason for consultation: PEG tube 09/29/21 11:31 Consult to Dietitian, Adult Routine Comment: tube feeds can start 09/29/21 Reason For Exam: tube feeds 10/01/21 15:36 Consult to Home Health Routine Comment: DX: CVA Reason For Exam: Arrange HH for ST and Nursing Discharge provider: Yajaira Anderson DO Summary Hospital Course Discharge Diagnosis: ACUTE CVA. APHASIA ;? ON ASPIRIN, STATIN, PLAVIX DYSPHAGIA DUE TO ACUTE CVA. .? STATUS POST PEG? PLACEMENT ANEMIA CHRONIC DISEASE.? STABLE HEMOGLOBIN REACTIVE? HYPERGLYCEMIA MECHANICAL HEART VALVE PER HISTORY.? MITRAL VALVE AORTIC STENOSIS. MILD PHYSICAL DEBILITY/ DECONDITIONING Hospital Course: THIS IS A VERY PLEASANT 71-YEAR-OLD MALE WITH AN UNFORTUNATE ACUTE CVA. HE WAS SEEN IN THE ER WITH REPORTED CONTINUE WITH SPEECH AND SWALLOWING. ORDER SYMPTOMS WORSEN FOR AN ACUTE CVA WERE ALSO NOTICEABLE PATIENT WAS DIAGNOSED WITH AN ACUTE CVA WITH SIGNIFICANT DEFICIT IN REGARD TO SPEECH AND SWALLOWING. PATIENT SUBSEQUENTLY HAD A PEG TUBE PLACE PER RECOMMENDATION FROM SPEECH THERAPY TEAM DUE TO SIGNIFICANT RISK OF ASPIRATION ASSOCIATED WITH HIS DYSPHAGIA. PATIENT HAS BEEN ON TUBE FEEDING SINCE FRIDAY 09/29. APPEARS TO BE TOLERATING IT FAIRLY WELL. HE HAS BEEN WORKING WITH SPEECH THERAPY WELL DIETITIAN TO MAXIMIZE HIS TUBE FEEDING AT THIS TIME, PATIENT APPEARED TO BE CLINICALLY STABLE AND SAFE FOR DISCHARGE. HE WILL CONTINUE HIS TUBE FEEDING OUTPATIENT PEG TUBE DRESSING CHANGES TO BE MADE FREQUENTLY BY PATIENT OR FAMILY. PATIENT WILL BE DISCHARGED WITH HOME HEALTH WHICH WILL PROVIDE ADEQUATE TEACHING TO PATIENT'S AND FAMILY IN REGARD TO THE TUBE FEEDING AND DRESSING CHANGES. HIS LABS IN VITAL SIGNS ARE FAIRLY STABLE. APART FROM DIFFICULTY WITH SPEECH AND SWALLOWING PATIENT HAS NO OTHER GROSSLY APPRECIATED NEUROLOGICAL DEFICITS HE HAS AMBULATORY DEPENDENTLY. HE DOES COMMUNICATE AT THIS TIME THROUGH WRITING USING A PAD. HE WILL BE DISCHARGED ON ASPIRIN 81 MG DAILY, PLAVIX 75 MG DAILY, LIPITOR 40 MG DAILY AND METOPROLOL 25 MG THROUGH HIS PEG TUBE EVERY 6 HOURS ECHO CARDIOGRAM DID NOT SHOW ANY SIGNIFICANT WALL MOTION ABNORMALITY. EJECTION FRACTION IS ABOUT 50%. MITRAL VALVE MECHANICAL VALVE APPRECIATED ON EXAM. MILD AORTIC STENOSIS ALSO REPORTED. ADDITIONAL MANAGEMENT WILL BE DEFERRED TO HIS OUTPATIENT PROVIDERS ACTIVITIES TOLERATED. FALL PRECAUTIONS FOLLOW-UP PRIMARY CARE PHYSICIAN WITHIN 1-2 WEEKS DIET: TUBE FEEDING ONLY Status at Discharge Cognitive/behavioral status at discharge: oriented Functional status at discharge: independent ambulation Overall status at discharge: patient is progressing back to baseline Time Spent with Patient Time spent: Greater than 30 minutes Exam Vital Signs (past 8 hours): - 10/02/21 04:15 10/02/21 07:00 Temperature 98.6 F 98.2 F Pulse Rate 67 64 Respiratory Rate 18 17 Blood Pressure 138/76 117/69 Pulse Oximetry 95 92 Oxygen Delivery Method Room Air Oxygen Flow Rate 0 Narrative Exam Narrative: NO ACUTE DISTRESS.? PATIENT IS ALERT ORIENTED X3.? APHASIC. HEAD ATRAUMATIC NORMOCEPHALIC NECK : SUPPLE WITHOUT ADENOPATHY NO CAROTID BRUITS EYE:? EOMI, PERRLA, NORMAL CONJUNCTIVA; NO JAUNDICE CHEST:? REGULAR RATE.? ? NO RUBS.? PMI IS NON DISPLACED.? NO MURMURS; NORMAL S1-S2 PULMONARY:? DECREASED BS OVER THE BASES.? MILD BIBASILAR CRACKLES NOTED; NO INCREASED DULLNESS TO PERCUSSION ABDOMEN:? ? PEG TUBE IN PLACE.? NO SIGN OF INFECTION AT THE SITE.SOFT.? NONTENDER.? NONDISTENDED.? BOWEL SOUNDS ARE PRESENT IN ALL 4 QUADRANTS.? EXTREMITIES: ? TRACE BILATERAL LOWER EXTREMITY EDEMA..? NO CYANOSIS CLUBBING NOTED. SENSATION INTACT TO ALL EXTREMITIES NEURO:? CRANIAL NERVES 2-12 GROSSLY INTACT. NO FOCAL NEUROLOGICAL DEFICIT NOTED. MSK:? NORMAL RANGE OF MOTION FOR AGE.? NO JOINT EFFUSION. SKIN:? NORMAL FOR ETHNICITY; NO ECCHYMOSIS.? NO LESION. ? GOOD? TURGOR.; NO RASHES :? NORMAL EXTERNAL GENITALIA. PSYCH :? APPROPRIATE MOOD AND AFFECT.? ALERT AWAKE ORIENTED X3 Objective Labs Result Diagrams: 09/29/21 06:59 10/02/21 04:24 Labs: Laboratory Results - last 24 hr 10/02/21 04:24 Potassium 3.5 Phosphorus 3.9 H D [facility] Social History household members: none Smoking Status: Former smoker alcohol intake: never Discharge Plan Discharge Plan Patient Disposition: Home Health Service Discharge orders & Medications Prescriptions: New atorvastatin [Lipitor] 20 mg Tablet 40 mg TUBE BEDTIME Qty: 30 2RF clopidogrel 75 mg Tablet 75 mg TUBE DAILY Qty: 30 2RF metoprolol tartrate 25 mg Tablet 25 mg TUBE Q6HR Qty: 120 2RF Continued aspirin 81 mg Tablet,Chewable 81 mg PO DAILY 0RF Follow up/Referrals: Kimberly Cary PA-C [[employer] Housekeeping Laundry Worker] - (*Appt on September with Josseline Cary @ 10am. [phone] ) Diet/Activity/Treatments Diet: Tube Feeding Activity: TOLERATED. FALL PRECAUTIONS. Visit Report/Discharge Packet Instructions: How to Care for Your PEG Tube, DI for Percutaneous Endoscopic Gastrostomy (PEG)
[2021-10-02] MEDS: ASPIRIN 81 MG CHEW TAB TUBE (09:42)
[2021-10-02] MEDS: CLOPIDOGREL 75 MG TABLET TUBE (09:42)
[2021-10-02] MEDS: ENOXAPARIN 40 MG/0.4 ML SYRINGE SUBCUT (09:42)
[2021-10-02 11:25] VITALS: O2SAT 93
[2021-10-02] MEDS: POTASSIUM CHLORIDE 20 MEQ/15 ML UDC 40 MEQ PO (11:45)
--- NOTE | 2021-10-02 11:59 | ST.IPDYTX ---
Visit Care Team Role Provider Type Dorothy Laboy MD Other Providers Physician Specialty: General Surgery Address: [address] [place] [address], [id number] Email: Josseline Smith DO Emergency Provider Physician Referring Provider Specialty: Emergency Medicine Address: [address] [place] [address], [id number] Email: [email or web address] Rao Virgen MD Admit Provider Physician Attending Provider Specialty: Hospitalist Address: [address] [place] [address], [address] Fax: Email: [email or web address] PEST LOCATOR Dysphagia Treatment PEST LOCATOR Dysphagia Treatment Start: 09/28/21 14:37 Freq: Status: Active Protocol: Document 10/02/21 11:52 ZS (Rec: 10/02/21 11:59 ZS [id number]) Dysphagia Treatment Session Time Visit Start Time 11:30 Visit Stop Time 11:45 Total Visit Minutes 15 Visit Information Visit Number 2 Setting Assessment Location Acute Care Visit Type Note Type Treatment Note Next Note Type Next Note Type Treatment Note Patient Information Identification Type Name,ID Wristband Subjective Observations Pt was seated upright in chair with at bedside when PEST LOCATOR arrived. He reported PEG tube feedings are going better and he is experiencing less food in his throat during feedings. Pt stated he is biting his tongue during tongue protrusion exercise. Pt indicated spelling is getting easier and was observed to write faster and make fewer spelling errors on his board. Treatment Treatment Activities Reviewed oral motor exercises and positioning during feedings. Discussed solutions for biting tongue during tongue protrusion exercise. Observed volitional control and ROM of oral structures. Assessment Patient Response to Treatment Good Rehab Potential Good Assessment of Improvement Pt presents with severely impaired strength and ROM of oral structures that place him at high risk for aspiration. Decrease in volitional control of smile and pucker noted since last Friday (09/28/21). Pt is able to protrude tongue just behind teeth, but not out of mouth. He reported he has been biting his tongue reflexively when completing tongue protrusion exercise. Discussed use of gauze, spoon, or other object to use as a wedge to keep teeth from biting down on tongue while completing this exercise. Pt expressed understanding and agreement with solution. He demonstrated a reflexive smile , but was unable to smile volitionally. Pt to continue with oral motor exercises to increase strength, ROM, and coordination of oral musculature. Recommend pt remains NPO at this time as he is at high risk for aspiration. Pt to discharge home with speech therapy home health today. Diet Recommendations Recommendations Continue Current Diet Liquids Order Nothing by Mouth Diet Order NPO Medication Recommendations Not Recommended by Mouth Treatment Plan Therapy Recommendations Pt to continue with oral motor exercises to increase strength, ROM, and coordination of oral musculature. Recommend pt remains NPO at this time as he is at high risk for aspiration. Will continue to monitor for assessment with PO trials as pt improves strength and ROM of oral structures. Dysphagia Goals The pt will perform exercises to increase strength, coordination, and ROM of swallow musculature independently to reduce risk of aspiration and increase comfort with oral intake. The pt will safely tolerate least restrictive diet to meet his nutrition and hydration needs.
[2021-10-02 12:00] VITALS: BP 121/63; PULSE 74; RESP 18; TEMP 36.7
--- NOTE | 2021-10-02 13:32 | CM.DPC ---
DCP/continued: Reviewed chart. Patient medically stable for discharge today. LPN OR MEDICAL ASSISTANT met with patient and friend/Darryl at bedside. All aware and agreeable to d/c home today with home health through [facility]. PEG tube supplies provided by [facility] this afternoon. Patient has new patient appointment on [facility] on October 05 at 10:00AM. LPN OR MEDICAL ASSISTANT spoke briefly with [facility] to notify them that patient will need provider to follow home health orders. However, the management of the PEG tube is done by patient and the shoe stitcher odd at [facility]. In [facility], notified Matt at [facility] if provider needed to only follow Home Health it can probably also be done by Dr. Laboy (surgeon whom inserted PEG tube). P: Home today with HH provided by [facility] and PEG tube supplies provided by [facility]. New pateint appointment made for October 05. CHAN Lopes
--- NOTE | 2021-10-02 14:54 | PC.NURSE ---
Pt is A&Ox3, VSS, afebrile on RA. He intermittently uses yankeur suction, but reports to be using it less, slight drooling at times from L side of mouth. He smiles without mouth weakness however he is unable to formulate speech, or stick out his tongue. He tolerates two TF bolus feedings with medications, residuals <5cc. He denies n/v, or abdominal pain. He states he feel mildly bloated, and abdomen is round, hypo active VS. He has a BM and is passing gas today. Pt meets with support person, senior games technician and client relations representative from [facility] and verbalize understanding of PEG care, Tube feedings and schedules. MD at bedside this a.m. clearing patient for discharge home on new medications. He and his support person Darryl verbalize understanding of medications, administering meds via GTube as well as understanding of follow up care with Primary provider (newly established). Pt is escorted this afternoon to private vehicle of Darryl to catch [employer] this afternoon
== END 2021-10-02 14:00 | disposition home health service (06) | DRG 66 ==
LOC: ED 19:57 → AC 20:01
PROVIDERS: Emergency Medicine; Internal Medicine; Surgery; Admitting Provider Internal Medicine; Emergency Provider Emergency Medicine; Referring Provider Emergency Medicine; Visit Provider Internal Medicine
PROC: 0DH63UZ Insertion of Feeding Device into Stomach, Percutaneous Approach (ICD-10-PCS; principal; 2021-09-28 15:15)
DX: I63.9 Cerebral infarction, unspecified (principal); R47.01 Aphasia; R13.10 Dysphagia, unspecified; I48.0 Paroxysmal atrial fibrillation; R29.707 NIHSS score 7; R29.705 NIHSS score 5; I10 Essential (primary) hypertension; Z95.2 Presence of prosthetic heart valve; Z20.822 Contact with and (suspected) exposure to COVID-19; Z87.891 Personal history of nicotine dependence
CPT/HCPCS: 36415; 43246; 70450; 70496; 70498; 71045; 80048; 80053; 80069; 80305; 81001; 82550; 82553; 82962; 83036; 83735; 84100; 84132; 84484; 85025; 85610; 85730; 87635; 92526; 92610; 93005; 93306; 94760; 97161; 97166; 97530; 99232; 99284; 99285; C9803; J1650; J2250; J3010; Q9957; Q9967

== ENCOUNTER → 2022-01-15 09:35 | Outpatient (CLI) | payer MEDICARE, SELFPAY ==
[2021-09-25 21:40] VITALS: BMI 24.1
[2022-01-15 19:23] LABS: Add Manual Diff / Slide Review NO; Basophils Absolute Auto 0 /uL (0-100); Basophils Percent Auto 0.5 % (0-2); Eosinophils Absolute Auto 800 /uL (0-450); Hematocrit 38.7 % (41-53); Hemoglobin 12.9 g/dL (13.5-17.5); Lymphocytes Absolute Auto 1500 /uL (1100-4500); Lymphocytes Percent Auto 17.4 % (25-40); Mean Corpuscular HGB Conc 33.4 % (30-36); Mean Corpuscular Hemoglobin 30.7 PG (26-34); Mean Corpuscular Volume 91.9 fL (80-100); Monocytes Absolute Auto 900 /uL (0-900); Monocytes Percent Auto 10.6 % (3-14); Neutrophils Absolute Auto 5400 /uL (1500-7000); Neutrophils Percent Auto 62.5 % (50-75); Platelet Count 186 X10^3/uL (150-400); Red Blood Cell Count 4.21 X10^6/uL (4.5-5.9); White Blood Cell Count 8.7 X10^3/uL (4.5-11.0)
[2022-01-15 19:33] LABS: Alanine Aminotransferase 19 IU/L (<50); Albumin Globulin Ratio 1.4 (1.0-2.8); Alkaline Phosphatase 89 U/L (38-126); Aspartate Aminotransferase 25 IU/L (17-59); BUN Creatinine Ratio 14.3 (6-22); Blood Urea Nitrogen 12 mg/dL (9-20); Calcium 9.1 mg/dL (8.4-10.2); Carbon Dioxide 27 mmol/L (22-32); Chloride 106 mmol/L (98-107); Cholesterol 110 mg/dL (140-199); Estimated Glomerular Filt Rate > 60 mL/min (>60); Globulin 2.9 g/dL (1.7-4.1); Glucose 105 mg/dL (80-110); HDL Cholesterol 43 mg/dL (40-60); HEMOLYSIS 16 (0-50); LDL Cholesterol Calculated 51 mg/dL (<100); Potassium 3.9 mmol/L (3.4-5.1); Sodium 139 mmol/L (137-145); Total Protein 6.9 g/dL (6.3-8.2); Triglycerides 80 mg/dL (35-150)
== END ==
PROVIDERS: PCP Physician Assistant; Visit Provider Physician Assistant
DX: I63.9 Cerebral infarction, unspecified (principal); I48.91 Unspecified atrial fibrillation; I69.328 Other speech and language deficits following cerebral infarction; I69.391 Dysphagia following cerebral infarction; R73.03 Prediabetes
CPT/HCPCS: 80053; 80061; 85025

== ENCOUNTER → 2022-12-04 13:21 | Outpatient (CLI) | payer MEDICARE, SELFPAY ==
[2021-09-25 21:40] VITALS: BMI 24.1
[2022-12-04 19:57] LABS: Alanine Aminotransferase 21 IU/L (<50); Albumin Globulin Ratio 1.5 (1.0-2.8); Alkaline Phosphatase 61 U/L (38-126); Aspartate Aminotransferase 24 IU/L (17-59); Bilirubin Total 0.7 mg/dL (0.2-1.3); Blood Urea Nitrogen 13 mg/dL (9-20); Carbon Dioxide 27 mmol/L (22-32); Chloride 106 mmol/L (98-107); Cholesterol 119 mg/dL (140-199); Estimated Glomerular Filt Rate > 60 mL/min (>60); Globulin 2.6 g/dL (1.7-4.1); Glucose 107 mg/dL (80-110); HDL Cholesterol 53 mg/dL (40-60); HEMOLYSIS < 15 (0-50); LDL Cholesterol Calculated 55 mg/dL (<100); Potassium 3.8 mmol/L (3.4-5.1); Sodium 139 mmol/L (137-145); Total Protein 6.6 g/dL (6.3-8.2); Triglycerides 54 mg/dL (35-150)
[2022-12-04 20:01] LABS: Add Manual Diff / Slide Review NO; Basophils Absolute Auto 0 /uL (0-100); Basophils Percent Auto 0.5 % (0-2); Eosinophils Absolute Auto 600 /uL (0-450); Eosinophils Percent Auto 7.4 % (2-4); Hemoglobin 12.7 g/dL (13.5-17.5); Lymphocytes Absolute Auto 1500 /uL (1100-4500); Lymphocytes Percent Auto 19.4 % (25-40); Mean Corpuscular HGB Conc 33.4 % (30-36); Mean Corpuscular Hemoglobin 30.8 PG (26-34); Mean Corpuscular Volume 92.2 fL (80-100); Monocytes Absolute Auto 900 /uL (0-900); Monocytes Percent Auto 11.6 % (3-14); Neutrophils Absolute Auto 4700 /uL (1500-7000); Neutrophils Percent Auto 61.1 % (50-75); Platelet Count 160 X10^3/uL (150-400); Red Blood Cell Count 4.12 X10^6/uL (4.5-5.9); Red Cell Distribution Width 14.7 % (11.6-14.8); White Blood Cell Count 7.7 X10^3/uL (4.5-11.0)
[2022-12-04 20:25] LABS: TSH w/ Reflex to FT4 1.96 uIU/mL (0.47-4.68)
[2022-12-04 20:47] LABS: Vitamin B12 370 pg/mL (239-931)
== END ==
PROVIDERS: PCP Physician Assistant; Visit Provider Family Medicine
DX: I48.20 Chronic atrial fibrillation, unspecified (principal); I69.391 Dysphagia following cerebral infarction; R73.03 Prediabetes; I48.91 Unspecified atrial fibrillation; Z95.2 Presence of prosthetic heart valve
CPT/HCPCS: 80053; 80061; 82607; 84443; 85025

== ENCOUNTER → 2023-10-09 11:37 | Outpatient (CLI) | payer MEDICARE, SELFPAY ==
[2021-09-25 21:40] VITALS: BMI 24.1
[2023-10-09 21:45] LABS: Add Manual Diff / Slide Review NO; Basophils Absolute Auto 0 /uL (0-100); Basophils Percent Auto 0.6 % (0-2); Eosinophils Absolute Auto 700 /uL (0-450); Eosinophils Percent Auto 9.1 % (2-4); Hematocrit 39.3 % (41-53); Hemoglobin 13.1 g/dL (13.5-17.5); Lymphocytes Absolute Auto 1600 /uL (1100-4500); Lymphocytes Percent Auto 20.2 % (25-40); Mean Corpuscular HGB Conc 33.4 % (30-36); Mean Corpuscular Hemoglobin 31.4 PG (26-34); Mean Corpuscular Volume 93.8 fL (80-100); Monocytes Absolute Auto 900 /uL (0-900); Monocytes Percent Auto 11.5 % (3-14); Neutrophils Absolute Auto 4600 /uL (1500-7000); Neutrophils Percent Auto 58.6 % (50-75); Platelet Count 170 X10^3/uL (150-400); Red Blood Cell Count 4.19 X10^6/uL (4.5-5.9); Red Cell Distribution Width 15.3 % (11.6-14.8); White Blood Cell Count 7.8 X10^3/uL (4.5-11.0)
[2023-10-09 22:33] LABS: BUN Creatinine Ratio 11.5 (6-22); Blood Urea Nitrogen 10 mg/dL (9-20); Carbon Dioxide 26 mmol/L (22-32); Chloride 108 mmol/L (98-107); Cholesterol 113 mg/dL (140-199); Estimated Glomerular Filt Rate > 60 mL/min (>60); Glucose 114 mg/dL (80-110); HDL Cholesterol 54 mg/dL (40-60); HEMOLYSIS 18 (0-50); HEMOLYSIS 20 (0-50); Iron 98 ug/dL (49-181); LDL Cholesterol Calculated 46 mg/dL (<100); Sodium 142 mmol/L (137-145); Triglycerides 63 mg/dL (35-150)
[2023-10-09 22:43] LABS: Percent Iron Saturation 34 % (20-50); Total Iron Binding Capacity 285 ug/dL (261-462); Transferrin 207 mg/dL (206-381)
[2023-10-09 23:06] LABS: TSH w/ Reflex to FT4 1.79 uIU/mL (0.47-4.68)
[2023-10-09 23:22] LABS: Vitamin B12 386 pg/mL (239-931)
== END ==
PROVIDERS: PCP Family Medicine; Visit Provider Family Medicine
DX: Z79.01 Long term (current) use of anticoagulants (principal); E78.2 Mixed hyperlipidemia; I48.91 Unspecified atrial fibrillation; D64.9 Anemia, unspecified
CPT/HCPCS: 80048; 80061; 82607; 83540; 83550; 84443; 85025

== ENCOUNTER → 2024-08-26 13:34 | Outpatient (CLI) | payer MEDICARE, SELFPAY ==
[2021-09-25 21:40] VITALS: BMI 24.1
[2024-08-26 19:27] LABS: Add Manual Diff / Slide Review NO; Basophils Absolute Auto 0 /uL (0-100); Basophils Percent Auto 0.4 % (0-2); Eosinophils Absolute Auto 700 /uL (0-450); Eosinophils Percent Auto 7.8 % (2-4); Hematocrit 38.1 % (41-53); Hemoglobin 12.6 g/dL (13.5-17.5); Lymphocytes Absolute Auto 1800 /uL (1100-4500); Lymphocytes Percent Auto 19.6 % (25-40); Mean Corpuscular HGB Conc 33.2 % (30-36); Mean Corpuscular Hemoglobin 30.6 PG (26-34); Mean Corpuscular Volume 92.3 fL (80-100); Monocytes Absolute Auto 1200 /uL (0-900); Monocytes Percent Auto 13.4 % (3-14); Neutrophils Absolute Auto 5300 /uL (1500-7000); Neutrophils Percent Auto 58.8 % (50-75); Platelet Count 227 X10^3/uL (150-400); Red Blood Cell Count 4.12 X10^6/uL (4.5-5.9); Red Cell Distribution Width 15.2 % (11.6-14.8)
[2024-08-26 19:30] LABS: Reticulocyte Count, Percent 1.2 % (0.9-2.6)
[2024-08-26 20:32] LABS: Vitamin B12 690 pg/mL (239-931)
== END ==
PROVIDERS: PCP Family Medicine; Visit Provider Family Medicine
DX: D50.9 Iron deficiency anemia, unspecified (principal)
CPT/HCPCS: 82607; 85025; 85045